=== PATIENT | female | born 1950 | race Caucasian/White ===

== ENCOUNTER → 2020-04-23 10:09 | Outpatient (BNVA) | payer MEDICARE, SELFPAY | PROVIDERS: PCP Family Medicine; Visit Provider Hospitalist | DX: J45.40 Moderate persistent asthma, uncomplicated (principal); R06.00 Dyspnea, unspecified | CPT/HCPCS: 99214 ==

== ENCOUNTER 2021-03-04 14:07 | Outpatient (REF) | payer MEDICARE, SELFPAY ==
[2021-03-04 16:04] LABS: Troponin-I High Sensitivity < 3.5 ng/L (<3.5-17.0)
[2021-03-06 03:36] LABS: SARS COV2 IgG Negative (Negative)
[2021-03-07 16:46] LABS: Immunoglobulin E 90 kU/L (<OR=114)
== END 2021-03-04 14:08 | disposition home or self-care (01) ==
LOC: HO.LAB 14:07
PROVIDERS: PCP Internal Medicine; Visit Provider Hospitalist
DX: J45.40 Moderate persistent asthma, uncomplicated (principal); R06.00 Dyspnea, unspecified; R06.89 Other abnormalities of breathing; R07.0 Pain in throat
CPT/HCPCS: 36415; 82785; 84484; 86769; 99212

== ENCOUNTER → 2021-08-30 08:24 | Outpatient (BNVA) | payer MEDICARE, SELFPAY | PROVIDERS: PCP Internal Medicine; Visit Provider Hospitalist | DX: J45.40 Moderate persistent asthma, uncomplicated (principal); J30.9 Allergic rhinitis, unspecified; R94.31 Abnormal electrocardiogram [ECG] [EKG]; R06.00 Dyspnea, unspecified; R06.89 Other abnormalities of breathing | CPT/HCPCS: 99212 ==

== ENCOUNTER → 2022-08-08 10:32 | Outpatient (BNVA) | payer MEDICARE, SELFPAY | PROVIDERS: PCP Internal Medicine; Visit Provider Hospitalist | DX: J45.40 Moderate persistent asthma, uncomplicated (principal); R94.31 Abnormal electrocardiogram [ECG] [EKG]; J30.9 Allergic rhinitis, unspecified; R06.00 Dyspnea, unspecified; R06.89 Other abnormalities of breathing; R00.0 Tachycardia, unspecified | CPT/HCPCS: 94618; 99212 ==

== ENCOUNTER 2022-08-17 10:47 | Outpatient (REF) | payer MEDICARE, SELFPAY ==
--- NOTE | 2022-08-17 13:58 | PFT_ITS ---
FLOWS: FEV1 83% of predicted at 1.53 L. FVC 81% of predicted at 2.00 L. FEV1 to FVC ratio of 0.77. Positive bronchodilator response. LUNG VOLUMES: Total lung capacity 90% of predicted at 4.02 L. Residual volume 95% of predicted at 1.93 L. Slow vital capacity 86% of predicted at 2.09 L. Expiratory reserve volume 24% of predicted at 0.12 L. Diffusion capacity is normal. IMPRESSION: No obstructive or restrictive ventilatory defect. Positive bronchodilator response. Decrease expiratory reserve volume suggests extrathoracic restriction likely secondary to abdominal obesity. Lee Guerrero MD AP/MODL / [id number]
== END 2022-08-17 10:48 | disposition home or self-care (01) ==
LOC: HO.RESP 10:47
PROVIDERS: PCP Internal Medicine; Visit Provider Hospitalist
DX: R06.00 Dyspnea, unspecified (principal)
CPT/HCPCS: 94060; 94727; 94729

== ENCOUNTER 2023-04-25 10:29 | Outpatient (AMB) | payer MEDICARE, SELFPAY ==
[2023-04-25 10:38] VITALS: BP 116/64; PULSE 59; O2SAT 100; BMI 28.5
--- NOTE | 2023-04-25 10:38 | MHC.OFFVIS ---
Intake Vital Signs 04/25/23 10:38 Height 5 ft Weight 146 lb BMI 28.5 BP 116/64 Blood Pressure Location Lt brachial Position Sitting Pulse 59 Pulse Source Pulse Oximeter Pulse Oximetry (%) 100 Oxygen Delivery Method Room Air Intake Visit Reasons: sick visit- cough/SOB Slitting And Shipping Supervisor Required: No Hard Metals Engraver Hand: Hard Metals Engraver Hand offered & declined Accompanied by: Self / Same As Patient Allergies No Known Allergies Allergy (Verified 04/25/23 10:43) Medication List - Last Reconciled 04/25/23 by Tahmina Johnson LPN albuterol sulfate 90 mcg/actuation (Ventolin HFA) 2 puffs inhalation QID PRN 30 days blood sugar diagnostic (Contour Next Test Strips) use 1 test strip six to eight times daily to test blood sugar; fluticasone propion-salmeterol 250-50 mcg/dose (Wixela Inhub) 1 inh inhalation Q12H hydrochlorothiazide 25 mg PO DAILY insulin aspart U-100 (Novolog U-100 Insulin aspart) 65 units (0.65 mL) subcut DIRECTED insulin glargine (Lantus U-100 Insulin) 10 units subcut DAILY ipratropium bromide 2 sprays intranasal TID PRN levothyroxine 60 mcg PO DAILY levothyroxine (Synthroid) 112 mcg PO DAILY mometasone 50 mcg/actuation (Nasonex) 2 sprays intranasal DAILY nifedipine ER 90 mg PO DAILY valsartan 160 mg PO DAILY zinc acetate (Galzin) 50 mg PO DAILY HPI sick visit- cough/SOB HPI Details Flor is a very pleasant 72 year old, never smoker, with followed for asthma, dyspnea and allergic rhinitis. She is well controlled on Wixela and uses albuterol along with flonase PRN with moderate effect. Today she presents for an acute visit. She reports bronchitic symptoms that have progressively worsened over the last two weeks with shortness of breath, wheeze, cough with yellow sputum and chest congestion. Denies any chest discomfort. She reports low grade fever for the first few days, otherwise denies chills or sick contacts. COVID test yesterday, negative. [facility] Medical History (Updated 04/25/23 @ 13:04 by Casandra Quiros NP) Tachycardia Dyspnea Chronic allergic rhinitis Throat discomfort Chest pain Asthma Dyspnea and respiratory abnormalities Family History (Updated 04/26/20 @ 22:15 by Lalito Alvarez MD) Other Asthma Social History (Updated 03/04/21 @ 14:23 by TERRELL Godinez) Patient Tobacco Use Status: Never used Tobacco Review of Systems Const Denies chills, Denies excessive sweating, Denies headache(s) and Denies night sweats Eyes Denies dry eyes, Denies irritation and Denies itchy eyes ENT Reports Normal hearing present, Denies headache(s), Denies nasal discharge and Denies post nasal drip Card Denies chest pain, Denies chest pain at rest, Denies chest pain with activity, Denies claudication, Denies leg edema, Denies orthopnea and Denies paroxysmal nocturnal dyspnea Resp Denies excessive phlegm production, Denies pain on inspiration, Denies pain with cough and Denies stridor Musc Denies myalgias Neuro Reports Normal hearing present and Denies headache(s) Endo Denies excessive sweating Robert/Lymph Denies lymphadenopathy Aller/Immun Denies itchy eyes and Denies seasonal rhinorrhea Physical Exam Vital Signs: Last Vital Signs Pulse 59 04/25/23 10:38 BP 116/64 04/25/23 10:38 Pulse Ox 100 04/25/23 10:38 Oxygen Delivery Method Room Air 04/25/23 10:38 BMI result Body Mass Index 28.5 Const General: cooperative, healthy appearing, comfortable, no acute distress, well developed and alert Orientation/consciousness: patient oriented x3 Limitations: no limitations HEENT Head: Yes normal to inspection, Yes normocephalic and Yes atraumatic Ears: hearing grossly normal bilaterally and external ears normal Eyes General: appearance normal, both eyes and all related structures Eyelids: Yes eyelids normal Sclerae: sclerae normal EOM: EOMs intact bilaterally Neck Neck: Yes normal visual inspection and Yes no lymphadenopathy Lymphatic: no lymphadenopathy noted Chest Chest palpation & inspection: normal inspection of the chest Resp Other: faint expiratory wheeze with post exhalation cough Effort & Inspection: normal respiratory effort, able to speak in complete sentences, no audible wheezes, Actively coughing, no stridor, not tachypneic, no tripod positioning and no use of accessory muscles Cardio Jugular venous distension: no JVD Rate: regular rate Rhythm: regular rhythm Skin Other: warm, dry General skin exam: no rashes or lesions noted Neuro General: patient oriented x3 Cranial nerves: Yes Normal hearing present Cognition (Neuro): normal cognition Gait exam (Neuro): Normal gait present Extrem General: Yes normal to inspection, Yes capillary refill normal, Yes no clubbing, cyanosis or edema and Yes no pedal edema Psych Appearance: grossly normal and well kempt Speech and movement: Normal speech and movement present and Clear speech present Affect: normal affect Attitude: cooperative Thought process: Normal thought process present Thought content: Normal thought content present Insight: Good insight present (Psych) Judgement: Good judgement present (Psych) Assessment & Plan Assessment & Plan (1) Bronchitis: Code(s): J40 - Bronchitis, not specified as acute or chronic (2) Asthma: Code(s): J45.909 - Unspecified asthma, uncomplicated Qualifiers: Asthma severity: moderate Asthma persistence: persistent Asthma complication type: uncomplicated Qualified Code(s): J45.40 - Moderate persistent asthma, uncomplicated (3) Chronic allergic rhinitis: Code(s): J30.9 - Allergic rhinitis, unspecified Plan Will treat bronchitic symptoms with azithromycin and prednisone. Patient aware if symptoms do not improve to call the office. Refills of Wixela and albuterol sent. All questions were answered and patient is in agreement of plan. Will follow up at regularly scheduled appointment with Dr. Alvarez in June or sooner if needed. Medications: New albuterol sulfate 90 mcg/actuation 2 puffs inhalation Q4-6H PRN 3 ea 1RF shortness of breath or wheezing azithromycin For 250 mg dose pack: take 500 mg today (day 1), then 250 mg for 4 days (days 2-5) PO 6 tabs 1RF prednisone 40 mg (2 x 20 mg) PO DAILY 10 tabs 1RF fluticasone propion-salmeterol 250-50 mcg/dose (Wixela Inhub) 1 inh inhalation Q12H 180 ea 1RF Refilled albuterol sulfate 90 mcg/actuation (Ventolin HFA) 2 puffs inhalation QID 30 days PRN 18 grams 11RF shortness of breath or wheezing ipratropium bromide administer into each nostril 2 sprays intranasal TID PRN 15 mL 6RF allergy symptoms Coding Level of Care Code Est Pt Level 3 (83127) Diagnoses Bronchitis J40 Moderate persistent asthma without complication J45.40 Asthma severity: moderate Asthma persistence: persistent Asthma complication type: uncomplicated Chronic allergic rhinitis J30.9
== END 2023-04-25 11:29 | disposition home or self-care (01) ==
LOC: HO.HPSW 10:29
PROVIDERS: PCP Internal Medicine; Visit Provider Nurse Practitioner Family
DX: J40 Bronchitis, not specified as acute or chronic (principal); J45.40 Moderate persistent asthma, uncomplicated; J30.9 Allergic rhinitis, unspecified
CPT/HCPCS: 99213

== ENCOUNTER → 2023-04-25 10:29 | Outpatient (BNVA) | payer MEDICARE, SELFPAY | PROVIDERS: PCP Internal Medicine; Visit Provider Nurse Practitioner Family | DX: J45.40 Moderate persistent asthma, uncomplicated (principal); J40 Bronchitis, not specified as acute or chronic; J30.9 Allergic rhinitis, unspecified | CPT/HCPCS: 99212 ==

== ENCOUNTER 2023-08-20 14:09 | Outpatient (REF) | payer MEDICARE, SELFPAY ==
--- NOTE | ~2023-08-20 | XR_ITS ---
EXAMINATION: XR CHEST CLINICAL INFORMATION: Dyspnea COMPARISON: 12/04/2019 TECHNIQUE: 2 views of the chest were obtained. FINDINGS: No significant abnormality is noted involving the heart, lungs, mediastinum, or soft tissues. Trace leftward scoliosis and mid thoracic compression deformities are unchanged. XR/XR chest 2V IMPRESSION: No acute cardiopulmonary disease or interval change.
== END 2023-08-20 14:10 | disposition home or self-care (01) ==
LOC: HO.XRAY 14:09
PROVIDERS: PCP Internal Medicine; Visit Provider Hospitalist
DX: J45.40 Moderate persistent asthma, uncomplicated (principal); J44.9 Chronic obstructive pulmonary disease, unspecified; J30.9 Allergic rhinitis, unspecified; R06.09 Other forms of dyspnea
CPT/HCPCS: 71046; 99212

== ENCOUNTER 2023-08-20 14:09 | Outpatient (AMB) | payer MEDICARE, SELFPAY ==
[2023-08-20 14:21] VITALS: PULSE 71; O2SAT 98; BMI 28.1
--- NOTE | 2023-08-20 14:21 | MHC.OFFVIS ---
Intake Vital Signs 08/20/23 14:21 Height 5 ft Weight 144 lb BMI 28.1 Pulse 71 Pulse Source Pulse Oximeter Pulse Oximetry (%) 98 Oxygen Delivery Method Room Air Intake Visit Reasons: copd Office Coordinator Receptionist Required: No Allergies No Known Allergies Allergy (Verified 08/20/23 14:22) HPI HPI Comments History of Present Illness Details the patient is a 72 year-old woman with a known history of asthma presenting with persistent dyspnea on exertion. 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 She had noticed increased dyspnea on exertion limiting her ability of exerting herself. She did demonstrated evidence of obstructive airway disease on her pulmonary function studies. Therefore she was treated for asthma with multiple inhalers of different classifications without any significant improvement. Therefore, we start her on nebulized therapy also without any significant improvement in her symptoms. We did review her x-ray demonstrating flattening of the diaphragms and hyperinflation. We also repeat her blood work. However, she did not respond to the inhaled therapy. This brings up the question evaluating for now Rima of diagnosis to explain her dyspnea. I explained to her that a CT scan of the chest would be helpful to better address her persistent symptoms. in addition to that she is concerned about systemic cortical steroids in view of her diabetes. This point the patient will return to using her Symbicort at least once a day. And she also has a short-acting beta agonist that she can use as needed. We did talk about the importance of warming up specially when she is going to start exercising to minimize exercise-induced bronchospasms. We also talked about pursed lip breathing to improve her respiratory capacity by increasing her intrinsic peep. 03/04/2021 the patient is here for a pulmonary follow-up visit. Since we last spoke she told me that she was having significant respiratory symptoms with chest congestion and cough for several weeks. She had been using her Ventolin HFA inhaler which appears to be the most effective 1 for her in the only 1 that gives her some relief. She did have evaluations by primary care doctor although she did not want to go to urgent care or the ER because she did not want to be expose to anybody who was sick. The patient did have an episode where her breathing became so significant she thought she was going to . she did improve and her respiratory symptoms have now back to baseline and she is back to using the Ventolin HFA. She is not using any of the other inhalers that will try in addition to that she has been having significant daytime drowsiness and also having a sense of throat swelling. She thought it could be 1 of her blood pressure medications so therefore she stopped all of them this includes the combination of valsartan and hydrochlorothiazide as well as amlodipine. When she stops the medication the sense of the PT drowsiness in the throat swelling sensation improved. However her blood pressure was elevated and she did go back to the valsartan hydrochlorothiazide combination. She has since that she has been doing back on an that the throat swelling sensation has returned. Therefore, she is going to talk to her primary care doctor about potentially switching her medications possibly the combination therapy to figure out which medication is potentially bother her since her symptoms improved once she stops the medication. She is not sure if she had COVID during the time that she was ill although she was tested for COVID a couple times and she was negative. Today before she leaves the hospital will have her get blood work including a COVID-19 antibody checked to see if there was any evidence of any exposure to COVID and her serology. 08/30/2021 the patient is here for a pulmonary follow-up visit. Overall she is doing better from a respiratory status. She has been exercising regularly in her cough is improved. Her chest congestion also has improved. She does use her Wixela daily and also uses her short-acting beta agonist prior to exercise. In the meantime she did follow-up with cardiology. She has had issues with elevated blood pressures and also carries other cardiovascular risk factors in addition to a positive family history of early heart disease. The patient did have an EKG and she did bring it in demonstrating some septal wall abnormalities. 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 Therefore, she will talk to her public relations regarding a stress test. In the meantime she complains about the nasal congestion. Sooner for works wonders for her. However now with her blood pressure she needs to be very careful with Sudafed as again increased blood pressure and increase her heart rate. Therefore we talked about alternatives including Atrovent nasal spray. She can use any conjunction with her nasocort. 08/08/2022 the patient is here for a pulmonary follow-up visit. She continues to have significant dyspnea on exertion. Even with minimal activity. Recently she went skiing with her grandchildren had a very hard time with shortness of breath to feels that the shortness of breath is getting worse. She did follow-up with cardiology in has been dealing with elevations in her blood pressure. As far as the pulmonary evaluation she has been on multiple inhalers without any significant improvement of her symptoms. She has not had pulmonary function studies in some time however. She also has not had any imaging studies either. During that visit we did go for 6 minutes walk test willing upstairs. Once we get to 3 flights of stairs heart rate went up to 135 and the patient was visibly dyspneic with dyspnea score 10/10. She rested. She denied any chest pain or pressure during that ambulation. once the patient's heart rate went over 101 she became symptomatic with some mild dyspnea. Again, once the heart rate decreased to below 100 her symptoms of dyspnea improved. She is closely working with Cardiology. the patient is wondering about a diagnosis of pulmonary hypertension. I do believe that a cardiopulmonary exercise study may be helpful at this point to assess for etiologies of her underlying dyspnea. In anyway she was having significant dyspnea and elevations in the heart rate. Therefore, blood work will be also important to make sure she is not anemic and also checking a D-dimer to rule out the possibility of chronic thromboembolic disease. If her D-dimer is elevated then a CTA or a V/Q scan or both will be helpful in further addressing her symptoms. 08/20/2023 the patient is here for a pulmonary follow-up visit. She continues to struggle with the same symptoms. Appears to have worsening dyspnea on exertion. She states that even going from the mailbox her house she has a stop once. The patient was a very avid hiker. She even climb [employer]. The patient is struggling at this point because of significant dyspnea. We had evaluated her in the past and she did develop significant tachycardia with any activity. She has been following closely with Cardiology though still not clear. She will benefit from additional testing and therefore I will request a cardiopulmonary exercise tolerance test at [facility] to further address the physiology behind her significant dyspnea symptoms. She has been on respiratory therapy. She definitely has asthma with small airways disease that is being treated with medication. Still no significant improvement of the dyspnea symptoms. The patient has not had a chest x-ray in a couple years therefore will go ahead and repeat 1 at this time. will plan to follow-up in 4-6 months but will discuss her findings and the CPAP once available. If the patient has any worsening issues or any other concerning issues she will call for an earlier assessment. [facility] Medical History (Updated 08/20/23 @ 18:44 by Lalito Alvarez MD) Tachycardia Dyspnea Chronic allergic rhinitis Throat discomfort Chest pain Asthma Dyspnea and respiratory abnormalities Family History (Updated 04/26/20 @ 22:15 by Lalito Alvarez MD) Other Asthma Social History (Updated 03/04/21 @ 14:23 by Daylin Bradford REPLACED BY [facility]) Patient Tobacco Use Status: Never used Tobacco Review of Systems Const Denies fatigue and Denies night sweats Eyes Denies change in vision ENT Denies change in voice, Denies lip swelling, Denies mouth pain, Reports nasal congestion, Reports nasal discharge, Reports post nasal drip and Denies tongue swelling Card Denies chest pain and Reports dyspnea on exertion Resp Reports cough and Reports dyspnea on exertion GI Denies abdominal pain Musc Denies no additional complaints Neuro Denies Neuro-related abnormal movements Psych Denies no additional complaints Endo Denies fatigue Robert/Lymph Denies easy bleeding and Denies lymphadenopathy Aller/Immun Denies lip swelling and Denies tongue swelling Physical Exam Vital Signs: Last Vital Signs Pulse 71 08/20/23 14:21 Pulse Ox 98 08/20/23 14:21 Oxygen Delivery Method Room Air 08/20/23 14:21 BMI result Body Mass Index 28.1 Const General: alert HEENT General nose exam: Nasal discharge present Mouth: Normal oral and palatal mucosa present, oropharynx normal and moist mucous membranes Throat: Yes postnasal drainage and No uvular edema Eyes Pupils: Equal, round and reactive pupils present Neck Neck: Yes normal visual inspection, Yes full ROM and Yes no lymphadenopathy Chest Chest palpation & inspection: normal inspection of the chest Resp Auscultation: clear to auscultation bilaterally, no rales, no rhonchi and no wheezes Cardio Rate: regular rate Rhythm: regular rhythm Heart sounds: S1 normal heart sound present and S2 normal heart sound present GI Palpation (GI): Soft to palpation and nontender Auscultation: normal bowel sounds General: Yes no CVA tenderness Back/Spine/Pelvis Back: no CVA tenderness Skin General skin exam: rashes and/or lesions noted Neuro Cranial nerves: Yes Equal, round and reactive pupils present Assessment & Plan Assessment & Plan (1) Dyspnea: Code(s): R06.00 - Dyspnea, unspecified Qualifiers: Dyspnea type: dyspnea on exertion Qualified Code(s): R06.09 - Other forms of dyspnea (2) Asthma: Code(s): J45.909 - Unspecified asthma, uncomplicated Qualifiers: Asthma severity: moderate Asthma persistence: persistent Asthma complication type: uncomplicated Qualified Code(s): J45.40 - Moderate persistent asthma, uncomplicated (3) Chronic allergic rhinitis: Code(s): J30.9 - Allergic rhinitis, unspecified (4) Tachycardia: Code(s): R00.0 - Tachycardia, unspecified Plan CPET continue symbicort RHONDA as needed CXR F/U 4-6 months Orders: Orders XR chest 2V Today R06.00 - Dyspnea, unspecified CA cardiopulmonary stress test Today R06.00 - Dyspnea, unspecified Coding Level of Care Code Est Pt Level 4 (79451) Diagnoses Dyspnea on exertion R06.09 Dyspnea type: dyspnea on exertion Moderate persistent asthma without complication J45.40 Asthma severity: moderate Asthma persistence: persistent Asthma complication type: uncomplicated Chronic allergic rhinitis J30.9 Tachycardia R00.0 Time Spent (min) 18
== END 2023-08-20 14:45 | disposition home or self-care (01) ==
PROVIDERS: PCP Internal Medicine; Visit Provider Hospitalist
DX: R06.09 Other forms of dyspnea (principal); J45.40 Moderate persistent asthma, uncomplicated; J30.9 Allergic rhinitis, unspecified; R00.0 Tachycardia, unspecified
CPT/HCPCS: 99214

== ENCOUNTER 2023-11-06 10:15 | Outpatient (AMB) | payer MEDICARE, SELFPAY ==
[2023-11-06 10:18] VITALS: BP 124/70; PULSE 65; O2SAT 98; BMI 27.3
--- NOTE | 2023-11-06 10:18 | MHC.OFFVIS ---
Vital Signs 11/06/23 10:18 Height 5 ft Weight 140 lb BMI 27.3 BP 124/70 Blood Pressure Location Lt brachial Position Sitting Pulse 65 Pulse Source Pulse Oximeter Pulse Oximetry (%) 98 Oxygen Delivery Method Room Air Intake Visit Reasons: copd Technologist Development Required: No Allergies No Known Allergies Allergy (Verified 11/06/23 10:20) HPI Comments Details: the patient is a 73 year-old woman with a known history of asthma presenting with persistent dyspnea on exertion. 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 She had noticed increased dyspnea on exertion limiting her ability of exerting herself. She did demonstrated evidence of obstructive airway disease on her pulmonary function studies. Therefore she was treated for asthma with multiple inhalers of different classifications without any significant improvement. Therefore, we start her on nebulized therapy also without any significant improvement in her symptoms. We did review her x-ray demonstrating flattening of the diaphragms and hyperinflation. We also repeat her blood work. However, she did not respond to the inhaled therapy. This brings up the question evaluating for now Rima of diagnosis to explain her dyspnea. I explained to her that a CT scan of the chest would be helpful to better address her persistent symptoms. in addition to that she is concerned about systemic cortical steroids in view of her diabetes. This point the patient will return to using her Symbicort at least once a day. And she also has a short-acting beta agonist that she can use as needed. We did talk about the importance of warming up specially when she is going to start exercising to minimize exercise-induced bronchospasms. We also talked about pursed lip breathing to improve her respiratory capacity by increasing her intrinsic peep. 03/04/2021 the patient is here for a pulmonary follow-up visit. Since we last spoke she told me that she was having significant respiratory symptoms with chest congestion and cough for several weeks. She had been using her Ventolin HFA inhaler which appears to be the most effective 1 for her in the only 1 that gives her some relief. She did have evaluations by primary care doctor although she did not want to go to urgent care or the ER because she did not want to be expose to anybody who was sick. The patient did have an episode where her breathing became so significant she thought she was going to . she did improve and her respiratory symptoms have now back to baseline and she is back to using the Ventolin HFA. She is not using any of the other inhalers that will try in addition to that she has been having significant daytime drowsiness and also having a sense of throat swelling. She thought it could be 1 of her blood pressure medications so therefore she stopped all of them this includes the combination of valsartan and hydrochlorothiazide as well as amlodipine. When she stops the medication the sense of the PT drowsiness in the throat swelling sensation improved. However her blood pressure was elevated and she did go back to the valsartan hydrochlorothiazide combination. She has since that she has been doing back on an that the throat swelling sensation has returned. Therefore, she is going to talk to her primary care doctor about potentially switching her medications possibly the combination therapy to figure out which medication is potentially bother her since her symptoms improved once she stops the medication. She is not sure if she had COVID during the time that she was ill although she was tested for COVID a couple times and she was negative. Today before she leaves the hospital will have her get blood work including a COVID-19 antibody checked to see if there was any evidence of any exposure to COVID and her serology. 08/30/2021 the patient is here for a pulmonary follow-up visit. Overall she is doing better from a respiratory status. She has been exercising regularly in her cough is improved. Her chest congestion also has improved. She does use her Wixela daily and also uses her short-acting beta agonist prior to exercise. In the meantime she did follow-up with cardiology. She has had issues with elevated blood pressures and also carries other cardiovascular risk factors in addition to a positive family history of early heart disease. The patient did have an EKG and she did bring it in demonstrating some septal wall abnormalities. 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 Therefore, she will talk to her voltage tester regarding a stress test. In the meantime she complains about the nasal congestion. Sooner for works wonders for her. However now with her blood pressure she needs to be very careful with Sudafed as again increased blood pressure and increase her heart rate. Therefore we talked about alternatives including Atrovent nasal spray. She can use any conjunction with her nasocort. 08/08/2022 the patient is here for a pulmonary follow-up visit. She continues to have significant dyspnea on exertion. Even with minimal activity. Recently she went skiing with her grandchildren had a very hard time with shortness of breath to feels that the shortness of breath is getting worse. She did follow-up with cardiology in has been dealing with elevations in her blood pressure. As far as the pulmonary evaluation she has been on multiple inhalers without any significant improvement of her symptoms. She has not had pulmonary function studies in some time however. She also has not had any imaging studies either. During that visit we did go for 6 minutes walk test willing upstairs. Once we get to 3 flights of stairs heart rate went up to 135 and the patient was visibly dyspneic with dyspnea score 10/10. She rested. She denied any chest pain or pressure during that ambulation. once the patient's heart rate went over 101 she became symptomatic with some mild dyspnea. Again, once the heart rate decreased to below 100 her symptoms of dyspnea improved. She is closely working with Cardiology. the patient is wondering about a diagnosis of pulmonary hypertension. I do believe that a cardiopulmonary exercise study may be helpful at this point to assess for etiologies of her underlying dyspnea. In anyway she was having significant dyspnea and elevations in the heart rate. Therefore, blood work will be also important to make sure she is not anemic and also checking a D-dimer to rule out the possibility of chronic thromboembolic disease. If her D-dimer is elevated then a CTA or a V/Q scan or both will be helpful in further addressing her symptoms. 08/20/2023 the patient is here for a pulmonary follow-up visit. She continues to struggle with the same symptoms. Appears to have worsening dyspnea on exertion. She states that even going from the mailbox her house she has a stop once. The patient was a very avid hiker. She even climb [employer]. The patient is struggling at this point because of significant dyspnea. We had evaluated her in the past and she did develop significant tachycardia with any activity. She has been following closely with Cardiology though still not clear. She will benefit from additional testing and therefore I will request a cardiopulmonary exercise tolerance test at [facility] to further address the physiology behind her significant dyspnea symptoms. She has been on respiratory therapy. She definitely has asthma with small airways disease that is being treated with medication. Still no significant improvement of the dyspnea symptoms. The patient has not had a chest x-ray in a couple years therefore will go ahead and repeat 1 at this time. will plan to follow-up in 4-6 months but will discuss her findings and the CPAP once available. If the patient has any worsening issues or any other concerning issues she will call for an earlier assessment. 11/06/2023 the patient is here for pulmonary follow-up visit. She continues to complain of dyspnea on exertion. Seems to be getting worse. We did review her pulmonary function studies. Appears to have a component of small airways disease consistent with asthma current the patient has been on Wixela but no significant improvement. Will provide her with Symbicort with hopes that she can use it specially in the morning which she is mostly active. She did undergo a cardiopulmonary exercise tolerance test. During the study she did have a respiratory limitation. She was obstructive indeed. Therefore the inhaler should help some. In addition to that as she exercise she developed worsening V/Q mismatch increasing space suggesting pulmonary vascular disease. Patient likely has exercise-induced pulmonary hypertension. We did talk about any level 3 CPAP although that is very invasive. Will try to request a exercise echo and see if we can measure pulmonary pressures with exercise. We consider vasodilators therapy if indicated. [facility] Medical History (Updated 11/06/23 @ 10:40 by Lalito Alvarez MD) Pulmonary hypertension Tachycardia Dyspnea Chronic allergic rhinitis Throat discomfort Chest pain Asthma Dyspnea and respiratory abnormalities Family History (Updated 04/26/20 @ 22:15 by Lalito Alvarez MD) Other Asthma Social History (Updated 03/04/21 @ 14:23 by Daylin Bradford [facility]) Patient Tobacco Use Status: Never used Tobacco Review of Systems Const Denies fatigue and Denies night sweats Eyes Denies change in vision ENT Denies change in voice, Denies lip swelling, Denies mouth pain, Reports nasal congestion, Reports nasal discharge, Reports post nasal drip and Denies tongue swelling Card Denies chest pain and Reports dyspnea on exertion Resp Reports cough and Reports dyspnea on exertion GI Denies abdominal pain Musc Denies no additional complaints Neuro Denies Neuro-related abnormal movements Psych Denies no additional complaints Endo Denies fatigue Robert/Lymph Denies easy bleeding and Denies lymphadenopathy Aller/Immun Denies lip swelling and Denies tongue swelling Physical Exam Vital Signs: Last Vital Signs Pulse 65 11/06/23 10:18 BP 124/70 11/06/23 10:18 Pulse Ox 98 11/06/23 10:18 Oxygen Delivery Method Room Air 11/06/23 10:18 BMI result Body Mass Index 27.3 Const General: alert HEENT General nose exam: Nasal discharge present Mouth: Normal oral and palatal mucosa present, oropharynx normal and moist mucous membranes Throat: Yes postnasal drainage and No uvular edema Eyes Pupils: Equal, round and reactive pupils present Neck Neck: Yes normal visual inspection, Yes full ROM and Yes no lymphadenopathy Chest Chest palpation & inspection: normal inspection of the chest Resp Auscultation: clear to auscultation bilaterally, no rales, no rhonchi and no wheezes Cardio Rate: regular rate Rhythm: regular rhythm Heart sounds: S1 normal heart sound present and S2 normal heart sound present GI Palpation (GI): Soft to palpation and nontender Auscultation: normal bowel sounds General: Yes no CVA tenderness Back/Spine/Pelvis Back: no CVA tenderness Skin General skin exam: rashes and/or lesions noted Neuro Cranial nerves: Yes Equal, round and reactive pupils present Assessment & Plan Assessment & Plan (1) Dyspnea: Code(s): R06.00 - Dyspnea, unspecified Category: Medical Qualifiers: Dyspnea type: dyspnea on exertion Qualified Code(s): R06.09 - Other forms of dyspnea (2) Asthma: Code(s): J45.909 - Unspecified asthma, uncomplicated Category: Medical Qualifiers: Asthma complication type: uncomplicated Asthma persistence: persistent Asthma severity: moderate Qualified Code(s): J45.40 - Moderate persistent asthma, uncomplicated (3) Chronic allergic rhinitis: Code(s): J30.9 - Allergic rhinitis, unspecified Category: Medical (4) Tachycardia: Code(s): R00.0 - Tachycardia, unspecified Category: Medical (5) Pulmonary hypertension: Code(s): I27.20 - Pulmonary hypertension, unspecified Category: Medical Plan stress ECHO consider vasodilator therapy start symbicort F/U 3-4 months Orders: Orders CA echo stress exercise Today I27.20 - Pulmonary hypertension, unspecified Medications: New budesonide-formoterol 160-4.5 mcg/actuation (Symbicort) 2 puffs inhalation BID 10.2 grams 11RF 30 days J44.89 - Other specified chronic obstructive pulmonary disease Coding Level of Care Code Est Pt Level 4 (76663) Diagnoses Dyspnea on exertion R06.09 Dyspnea type: dyspnea on exertion Moderate persistent asthma without complication J45.40 Asthma complication type: uncomplicated Asthma persistence: persistent Asthma severity: moderate Chronic allergic rhinitis J30.9 Tachycardia R00.0 Pulmonary hypertension I27.20 Time Spent (min) 17
== END 2023-11-06 10:53 | disposition home or self-care (01) ==
PROVIDERS: PCP Internal Medicine; Visit Provider Hospitalist
DX: R06.09 Other forms of dyspnea (principal); J45.40 Moderate persistent asthma, uncomplicated; J30.9 Allergic rhinitis, unspecified; R00.0 Tachycardia, unspecified; I27.20 Pulmonary hypertension, unspecified
CPT/HCPCS: 99214

== ENCOUNTER → 2023-11-06 10:15 | Outpatient (BNVA) | payer MEDICARE, SELFPAY | PROVIDERS: PCP Internal Medicine; Visit Provider Hospitalist | DX: J45.40 Moderate persistent asthma, uncomplicated (principal); J30.9 Allergic rhinitis, unspecified; R06.09 Other forms of dyspnea; R00.0 Tachycardia, unspecified; I27.20 Pulmonary hypertension, unspecified | CPT/HCPCS: 99212 ==

== ENCOUNTER → 2023-12-06 10:34 | Outpatient (REF) | payer MEDICARE, SELFPAY ==
--- NOTE | 2023-12-06 10:36 | CA_ITS ---
Acquisition Time: 2023-12-06 10:40:38 Total Exercise Time: 00:09:30 Test Indications: PULM HTN Medications: SEE H Protocol: MERARY Max HR: 150 BPM 102% of Pred: 147 BPM Max BP: 178/070 mmHG Max Work Load: 10.8 METS Exercise stress test exercise 9 min 30 sec of Merary protocol achieving 102% MPHR, without anginal symptoms, with isolated PVCs and PACs, with normotensive response to exercise, without EKG changes. Echo images obtained by tech at rest and immediately post peak exercise. Definity contrast used. Test reviewed with Dr. Rosa. Referred By: Lalito Alvarez Overread By: Tete Silver
== END ==
LOC: HO.CARD 10:34
PROVIDERS: PCP Internal Medicine; Visit Provider Hospitalist
DX: I27.20 Pulmonary hypertension, unspecified (principal)
CPT/HCPCS: 93350; Q9957

== ENCOUNTER 2024-02-19 09:51 | Outpatient (AMB) | payer MEDICARE, SELFPAY ==
[2024-02-19 10:12] VITALS: BP 136/70; PULSE 66; O2SAT 99; BMI 27.3
--- NOTE | 2024-02-19 10:12 | A.OFFVIS_ITS ---
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 She had noticed increased dyspnea on exertion limiting her ability of exerting herself. She did demonstrated evidence of obstructive airway disease on her pulmonary function studies. Therefore she was treated for asthma with multiple inhalers of different classifications without any significant improvement. Therefore, we start her on nebulized therapy also without any significant improvement in her symptoms. We did review her x-ray demonstrating flattening of the diaphragms and hyperinflation. We also repeat her blood work. However, she did not respond to the inhaled therapy. This brings up the question evaluating for now Rima of diagnosis to explain her dyspnea. I explained to her that a CT scan of the chest would be helpful to better address her persistent symptoms. in addition to that she is concerned about systemic cortical steroids in view of her diabetes. This point the patient will return to using her Symbicort at least once a day. And she also has a short-acting beta agonist that she can use as needed. We did talk about the importance of warming up specially when she is going to start exercising to minimize exercise- induced bronchospasms. We also talked about pursed lip breathing to improve her respiratory capacity by increasing her intrinsic peep. 03/04/2021 the patient is here for a pulmonary follow-up visit. Since we last spoke she told me that she was having significant respiratory symptoms with chest congestion and cough for several weeks. She had been using her Ventolin HFA inhaler which appears to be the most effective 1 for her in the only 1 that gives her some relief. She did have evaluations by primary care doctor although she did not want to go to urgent care or the ER because she did not want to be expose to anybody who was sick. The patient did have an episode where her breathing became so significant she thought she was going to . she did improve and her respiratory symptoms have now back to baseline and she is back to using the Ventolin HFA. She is not using any of the other inhalers that will try in addition to that she has been having significant daytime drowsiness and also having a sense of throat swelling. She thought it could be 1 of her blood pressure medications so therefore she stopped all of them this includes the combination of valsartan and hydrochlorothiazide as well as amlodipine. When she stops the medication the sense of the PT drowsiness in the throat swelling sensation improved. However her blood pressure was elevated and she did go back to the valsartan hydrochlorothiazide combination. She has since that she has been doing back on an that the throat swelling sensation has returned. Therefore, she is going to talk to her primary care doctor about potentially switching her medications possibly the combination therapy to figure out which medication is potentially bother her since her symptoms improved once she stops the medication. She is not sure if she had COVID during the time that she was ill although she was tested for COVID a couple times and she was negative. Today before she leaves the hospital will have her get blood work i ncluding a COVID-19 antibody checked to see if there was any evidence of any exposure to COVID and her serology. 08/30/2021 the patient is here for a pulmonary follow-up visit. Overall she is doing better from a respiratory status. She has been exercising regularly in her cough is improved. Her chest congestion also has improved. She does use her Wixela daily and also uses her short-acting beta agonist prior to exercise. In the meantime she did follow-up with cardiology. She has had issues with elevated blood pressures and also carries other cardiovascular risk factors in addition to a positive family history of early heart disease. The patient did have an EKG and she did bring it in demonstrating some septal wall abnormalities. 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 Therefore, she will talk to her supervisor sawmill regarding a stress test. In the meantime she complains about the nasal congestion. Sooner for works wonders for her. However now with her blood pressure she needs to be very careful with Sudafed as again increased blood pressure and increase her heart rate. Therefore we talked about alternatives including Atrovent nasal spray. She can use any conjunction with her nasocort. 08/08/2022 the patient is here for a pulmonary follow-up visit. She continues to have significant dyspnea on exertion. Even with minimal activity. Recently she went skiing with her grandchildren had a very hard time with shortness of breath to feels that the shortness of breath is getting worse. She did follow- up with cardiology in has been dealing with elevations in her blood pressure. As far as the pulmonary evaluation she has been on multiple inhalers without any significant improvement of her symptoms. She has not had pulmonary function studies in some time however. She also has not had any imaging studies either. During that visit we did go for 6 minutes walk test willing upstairs. Once we get to 3 flights of stairs heart rate went up to 135 and the patient was visibly dyspneic with dyspnea score 10/10. She rested. She denied any chest pain or pressure during that ambulation. once the patient's heart rate went over 101 she became symptomatic with some mild dyspnea. Again, once the heart rate decreased to below 100 her symptoms of dyspnea improved. She is closely working with Cardiology. the patient is wondering about a diagnosis of pulmonary hypertension. I do believe that a cardiopulmonary exercise study may be helpful at this point to assess for etiologies of her underlying dyspnea. In anyway she was having significant dyspnea and elevations in the heart rate. Therefore, blood work will be also important to make sure she is not anemic and also checking a D-dimer to rule out the possibility of chronic thromboembolic disease. If her D-dimer is elevated then a CTA or a V/Q scan or both will be helpful in further addressing her symptoms. 08/20/2023 the patient is here for a pulmonary follow-up visit. She continues to struggle with the same symptoms. Appears to have worsening dyspnea on exertion. She states that even going from the mailbox her house she has a stop once. The patient was a very avid hiker. She even climb [employer]. The patient is struggling at this point because of significant dyspnea. We had evaluated her in the past and she did develop significant tachycardia with any activity. She has been following closely with Cardiology though still not clear. She will benefit from additional testing and therefore I will request a cardiopulmonary exercise tolerance test at [facility] to further address the physiology behind her significant dyspnea symptoms. She has been on respiratory therapy. She definitely has asthma with small airways disease that is being treated with medication. Still no significant improvement of the dyspnea symptoms. The patient has not had a chest x-ray in a couple years therefore will go ahead and repeat 1 at this time. will plan to follow-up in 4- 6 months but will discuss her findings and the CPAP once available. If the patient has any worsening issues or any other concerning issues she will call for an earlier assessment. 11/06/2023 the patient is here for pulmonary follow-up visit. She continues to complain of dyspnea on exertion. Seems to be getting worse. We did review her pulmonary function studies. Appears to have a component of small airways disease consistent with asthma current the patient has been on Wixela but no significant improvement. Will provide her with Symbicort with hopes that she can use it specially in the morning which she is mostly active. She did undergo a cardiopulmonary exercise tolerance test. During the study she did have a respiratory limitation. She was obstructive indeed. Therefore the inhaler should help some. In addition to that as she exercise she developed worsening V/Q mismatch increasing space suggesting pulmonary vascular disease. Patient likely has exercise-induced pulmonary hypertension. We did talk about any level 3 CPAP although that is very invasive. Will try to request a exercise echo and see if we can measure pulmonary pressures with exercise. We consider vasodilators therapy if indicated. 02/19/2024 the patient is here for a pulmonary follow-up visit. She continues to be about the same still complaining of dyspnea on exertion. Although she did go away to [place] and she did a lot better with the air quality there. When she came back to the [place] she had a hard time. The patient did undergo a stress echo which I did review with her. It appeared that she did not have any ischemic changes which is reassuring. 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 The patient is already on blood pressure medications for elevated blood pressure which is helpful for the diastolic dysfunction. She will need a rate controlling agent to allow her heart rate slowed down enough for her to be able to relax her left ventricle. She has tried beta-blockers in the past him with her asthma good idea. I will give her a prescription for small dose of diltiazem that she can take 4 times a day. The patient will watch closely for any adverse effects. She can also check her blood pressure and heart rate while taking the medication. If she has any issues she will call the office. She will be following up with Nephrology soon which will be helpful to adjust her blood pressure medications. She does continue the Symbicort. I did suggest that she continues use it 1 puff twice a day. Then when she is stable on the diltiazem she can try to decrease it to as needed. [facility] Medical History (Updated 02/19/24 @ 20:33 by Lalito Alvarez MD) 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 Pulmonary hypertension Tachycardia Dyspnea Chronic allergic rhinitis Throat discomfort Chest pain Asthma Dyspnea and respiratory abnormalities Family History (Updated 04/26/20 @ 22:15 by Lalito Alvarez MD) Other Asthma Social History (Updated 03/04/21 @ 14:23 by TERRELL Godinez) Patient Tobacco Use Status: Never used Tobacco Review of Systems Const Denies fatigue and Denies night sweats Eyes Denies change in vision ENT Denies change in voice, Denies lip swelling, Denies mouth pain, Reports nasal congestion, Reports nasal discharge, Reports post nasal drip and Denies tongue swelling Card Denies chest pain and Reports dyspnea on exertion Resp Reports cough and Reports dyspnea on exertion GI Denies abdominal pain Musc Denies no additional complaints Neuro Denies Neuro-related abnormal movements Psych Denies no additional complaints Endo Denies fatigue Robert/Lymph Denies easy bleeding and Denies lymphadenopathy Aller/Immun Denies lip swelling and Denies tongue swelling Physical Exam Vital Signs: Last Vital Signs Pulse 66 02/19/24 10:12 BP 136/70 02/19/24 10:12 Pulse Ox 99 02/19/24 10:12 Oxygen Delivery Method Room Air 02/19/24 10:12 BMI result Body Mass Index 27.3 Const General: alert HEENT General nose exam: Nasal discharge present Mouth: Normal oral and palatal mucosa present, oropharynx normal and moist mucous membranes Throat: Yes postnasal drainage and No uvular edema Eyes Pupils: Equal, round and reactive pupils present Neck Neck: Yes normal visual inspection, Yes full ROM and Yes no lymphadenopathy Chest Chest palpation & inspection: normal inspection of the chest Resp Auscultation: clear to auscultation bilaterally, no rales, no rhonchi and no wheezes Cardio Rate: regular rate Rhythm: regular rhythm Heart sounds: S1 normal heart sound present and S2 normal heart sound present GI Palpation (GI): Soft to palpation and nontender Auscultation: normal bowel sounds General: Yes no CVA tenderness Back/Spine/Pelvis Back: no CVA tenderness Skin General skin exam: rashes and/or lesions noted Neuro Cranial nerves: Yes Equal, round and reactive pupils present Results Reviewed Results Reviewed: [address] [address] Cardiology Report Signed with Addenda Patient: Flor Retana MR#: [id number] : 1950 Acct:[id number] Age/Sex: 73 / F ADM Date: 12/06/23 Loc: HO.CARD Attending Dr: Lalito Alvarez MD Ordering Physician: Lalito Alvarez MD Date of Service: 12/06/23 Procedure(s): CA echo stress exercise w con Accession Number(s): [id number] cc: Lalito Alvarez MD~ ADDENDUMAcquisition Time: 2023-12-06 10:40:38 Total Exercise Time: 00:09:30 Test Indications: PULM HTN Medications: SEE H Protocol: ARNOLDO Max HR: 150 BPM 102% of Pred: 147 BPM Max BP: 178/070 mmHG Max Work Load: 10.8 METS Exercise stress test exercise 9 min 30 sec of Arnoldo protocol achieving 102% MPHR, without anginal symptoms, with isolated PVCs and PACs, with normotensive response to exercise, without EKG changes. Echo images obtained by tech at rest and immediately post peak exercise. Definity contrast used. Test reviewed with Dr. Rosa. Echo images reviewed at rest and post stress. At rest: normal LVEF and no RWMA. Post stress: Augmented LVEF and no RWMA. Diastology: Elevated filling pressures at rest with pseudonormal pattern. TR veolcities increased post stress. Impression: No stress induced RWMA. Diastolic dysfunction present. Referred By: Lalito Alvarez Overread By: Nacho Rosa Addendum Dictated By: Nacho Rosa MD Addendum Signed By: <Electronically signed by Nacho Rosa MD> 12/10/23 1647 Addendum Cosigned By: DD/ TD/TT: 12/10/23 Acquisition Time: 2023-12-06 10:40:38 Total Exercise Time: 00:09:30 Test Indications: PULM HTN Medications: SEE H Protocol: ARNOLDO Max HR: 150 BPM 102% of Pred: 147 BPM Max BP: 178/070 mmHG Max Work Load: 10.8 METS Exercise stress test exercise 9 min 30 sec of Arnoldo protocol achieving 102% MPHR, without anginal symptoms, with isolated PVCs and PACs, with normotensive response to exercise, without EKG changes. Echo images obtained by tech at rest and immediately post peak exercise. Definity contrast used. Test reviewed with Dr. Rosa. Referred By: Lalito Alvarez Overread By: Tete Silver Dictated By: Tete Silver NP Signed By: <Electronically signed by Tete Silver in OV> 12/06/23 1549 DD/ 1040 TD/TT: 12/06/23 1549 Air Quality Consultant: Assessment & Plan Assessment & Plan (1) Dyspnea: Code(s): R06.00 - Dyspnea, unspecified Category: Medical Qualifiers: Dyspnea type: dyspnea on exertion Qualified Code(s): R06.09 - Other forms of dyspnea (2) Asthma: Code(s): J45.909 - Unspecified asthma, uncomplicated Category: Medical Qualifiers: Asthma complication type: uncomplicated Asthma persistence: persistent Asthma severity: moderate Qualified Code(s): J45.40 - Moderate persistent asthma, uncomplicated (3) Chronic allergic rhinitis: Code(s): J30.9 - Allergic rhinitis, unspecified Category: Medical (4) Tachycardia: Code(s): R00.0 - Tachycardia, unspecified Category: Medical (5) Pulmonary hypertension: Comment: secondary to the elevated LVEDP. 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: Comment: stress induced Code(s): I51.89 - Other ill-defined heart diseases Category: Medical Plan start low dose diltiazem for diastolic dysfuction in order to improve LV filling. Will monitor HR and BP F/U with cardiology continue symbicort for now F/U 3-4 months Coding Level of Care Code Est Pt Level 4 (34564) Complex EM visit Add On G2211 Diagnoses Dyspnea on exertion R06.09 Dyspnea type: dyspnea on exertion Moderate persistent asthma without complication J45.40 Asthma complication type: uncomplicated Asthma persistence: persistent Asthma severity: moderate Chronic allergic rhinitis J30.9 Tachycardia R00.0 Pulmonary hypertension I27.20 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
== END 2024-02-19 10:34 | disposition home or self-care (01) ==
PROVIDERS: PCP Internal Medicine; Visit Provider Hospitalist
DX: R06.09 Other forms of dyspnea (principal); J45.40 Moderate persistent asthma, uncomplicated; J30.9 Allergic rhinitis, unspecified; R00.0 Tachycardia, unspecified; I27.20 Pulmonary hypertension, unspecified; I51.89 Other ill-defined heart diseases
CPT/HCPCS: 99214; G2211

== ENCOUNTER → 2024-02-19 09:51 | Outpatient (BNVA) | payer MEDICARE, SELFPAY | PROVIDERS: PCP Internal Medicine; Visit Provider Hospitalist | DX: J45.40 Moderate persistent asthma, uncomplicated (principal); J30.9 Allergic rhinitis, unspecified; R06.09 Other forms of dyspnea; R00.0 Tachycardia, unspecified; I27.20 Pulmonary hypertension, unspecified; I51.89 Other ill-defined heart diseases | CPT/HCPCS: 99212 ==

== ENCOUNTER 2024-05-23 15:44 | Outpatient (AMB) | payer MEDICARE, SELFPAY ==
--- NOTE | 2024-05-23 15:50 | A.OFFVIS_ITS ---
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 Technology And Engineering Teacher: Technology And Engineering Teacher offered & declined Accompanied by: Self / Same As Patient Allergies No Known Allergies Allergy (Verified 05/23/24 15:54) Medication List - Last Reconciled 05/23/24 by Tahmina Johnson LPN albuterol sulfate 90 mcg/actuation (Ventolin HFA) 2 puffs inhalation QID PRN 30 days albuterol sulfate 90 mcg/actuation 2 puffs inhalation Q4-6H PRN blood sugar diagnostic (Contour Next Test Strips) use 1 test strip six to eight times daily to test blood sugar; diltiazem HCl 30 mg PO QID 30 days hydralazine 25 mg PO BID hydrochlorothiazide 25 mg PO DAILY insulin aspart U-100 (Novolog U-100 Insulin aspart) 65 units (0.65 mL) subcut DIRECTED insulin glargine (Lantus U-100 Insulin) 10 units subcut DAILY ipratropium bromide 2 sprays intranasal TID PRN levothyroxine 60 mcg PO DAILY metoprolol tartrate 25 mg PO BID mometasone 50 mcg/actuation (Nasonex) 2 sprays intranasal DAILY Symbicort 160-4.5 mcg/actuation (budesonide-formoterol) 2 puffs inhalation BID 30 days NS valsartan 160 mg PO DAILY zinc acetate (Galzin) 50 mg PO DAILY HPI Comments Details: the patient is a 73 year-old woman with a known history of asthma presenting with persistent dyspnea on exertion. 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 She had noticed increased dyspnea on exertion limiting her ability of exerting herself. She did demonstrated evidence of obstructive airway disease on her pulmonary function studies. Therefore she was treated for asthma with multiple inhalers of different classifications without any significant improvement. Therefore, we start her on nebulized therapy also without any significant improvement in her symptoms. We did review her x-ray demonstrating flattening of the diaphragms and hyperinflation. We also repeat her blood work. However, she did not respond to the inhaled therapy. This brings up the question evaluating for now Rima of diagnosis to explain her dyspnea. I explained to her that a CT scan of the chest would be helpful to better address her persistent symptoms. in addition to that she is concerned about systemic cortical steroids in view of her diabetes. This point the patient will return to using her Symbicort at least once a day. And she also has a short-acting beta agonist that she can use as needed. We did talk about the importance of warming up specially when she is going to start exercising to minimize exercise- induced bronchospasms. We also talked about pursed lip breathing to improve her respiratory capacity by increasing her intrinsic peep. 03/04/2021 the patient is here for a pulmonary follow-up visit. Since we last spoke she told me that she was having significant respiratory symptoms with chest congestion and cough for several weeks. She had been using her Ventolin HFA inhaler which appears to be the most effective 1 for her in the only 1 that gives her some relief. She did have evaluations by primary care doctor although she did not want to go to urgent care or the ER because she did not want to be expose to anybody who was sick. The patient did have an episode where her breathing became so significant she thought she was going to . she did impro ve and her respiratory symptoms have now back to baseline and she is back to using the Ventolin HFA. She is not using any of the other inhalers that will try in addition to that she has been having significant daytime drowsiness and also having a sense of throat swelling. She thought it could be 1 of her blood pressure medications so therefore she stopped all of them this includes the combination of valsartan and hydrochlorothiazide as well as amlodipine. When she stops the medication the sense of the PT drowsiness in the throat swelling sensation improved. However her blood pressure was elevated and she did go back to the valsartan hydrochlorothiazide combination. She has since that she has been doing back on an that the throat swelling sensation has returned. Therefore, she is going to talk to her primary care doctor about potentially switching her medications possibly the combination therapy to figure out which medication is potentially bother her since her symptoms improved once she stops the medication. She is not sure if she had COVID during the time that she was ill although she was tested for COVID a couple times and she was negative. Today before she leaves the hospital will have her get blood work including a COVID-19 antibody checked to see if there was any evidence of any exposure to COVID and her serology. 08/30/2021 the patient is here for a pulmonary follow-up visit. Overall she is doing better from a respiratory status. She has been exercising regularly in her cough is improved. Her chest congestion also has improved. She does use her Wixela daily and also uses her short-acting beta agonist prior to exercise. In the meantime she did follow-up with cardiology. She has had issues with elevated blood pressures and also carries other cardiovascular risk factors in addition to a positive family history of early heart disease. The patient did have an EKG and she did bring it in demonstrating some septal wall abnormalities. 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 Therefore, she will talk to her airport engineer regarding a stress test. In the meantime she complains about the nasal congestion. Sooner for works wonders for her. However now with her blood pressure she needs to be very careful with Sudafed as again increased blood pressure and increase her heart rate. Therefore we talked about alternatives including Atrovent nasal spray. She can use any conjunction with her nasocort. 08/08/2022 the patient is here for a pulmonary follow-up visit. She continues to have significant dyspnea on exertion. Even with minimal activity. Recently she went skiing with her grandchildren had a very hard time with shortness of breath to feels that the shortness of breath is getting worse. She did follow- up with cardiology in has been dealing with elevations in her blood pressure. As far as the pulmonary evaluation she has been on multiple inhalers without any significant improvement of her symptoms. She has not had pulmonary function studies in some time however. She also has not had any imaging studies either. During that visit we did go for 6 minutes walk test willing upstairs. Once we get to 3 flights of stairs heart rate went up to 135 and the patient was visibly dyspneic with dyspnea score 10/10. She rested. She denied any chest pain or pressure during that ambulation. once the patient's heart rate went over 101 she became symptomatic with some mild dyspnea. Again, once the heart r ate decreased to below 100 her symptoms of dyspnea improved. She is closely working with Cardiology. the patient is wondering about a diagnosis of pulmonary hypertension. I do believe that a cardiopulmonary exercise study may be helpful at this point to assess for etiologies of her underlying dyspnea. In anyway she was having significant dyspnea and elevations in the heart rate. Therefore, blood work will be also important to make sure she is not anemic and also checking a D-dimer to rule out the possibility of chronic thromboembolic disease. If her D-dimer is elevated then a CTA or a V/Q scan or both will be helpful in further addressing her symptoms. 08/20/2023 the patient is here for a pulmonary follow-up visit. She continues to struggle with the same symptoms. Appears to have worsening dyspnea on exertion. She states that even going from the mailbox her house she has a stop once. The patient was a very avid hiker. She even climb [employer]. The patient is struggling at this point because of significant dyspnea. We had evaluated her in the past and she did develop significant tachycardia with any activity. She has been following closely with Cardiology though still not clear. She will benefit from additional testing and therefore I will request a cardiopulmonary exercise tolerance test at [facility] to further address the physiology behind her significant dyspnea symptoms. She has been on respiratory therapy. She definitely has asthma with small airways disease that is being treated with medication. Still no significant improvement of the dyspnea symptoms. The patient has not had a chest x-ray in a couple years therefore will go ahead and repeat 1 at this time. will plan to follow-up in 4- 6 months but will discuss her findings and the CPAP once available. If the patient has any worsening issues or any other concerning issues she will call for an earlier assessment. 11/06/2023 the patient is here for pulmonary follow-up visit. She continues to complain of dyspnea on exertion. Seems to be getting worse. We did review her pulmonary function studies. Appears to have a component of small airways disease consistent with asthma current the patient has been on Wixela but no significant improvement. Will provide her with Symbicort with hopes that she can use it specially in the morning which she is mostly active. She did undergo a cardiopulmonary exercise tolerance test. During the study she did have a respiratory limitation. She was obstructive indeed. Therefore the inhaler should help some. In addition to that as she exercise she developed worsening V/Q mismatch increasing space suggesting pulmonary vascular disease. Patient likely has exercise-induced pulmonary hypertension. We did talk about any level 3 CPAP although that is very invasive. Will try to request a exercise echo and see if we can measure pulmonary pressures with exercise. We consider vasodilators therapy if indicated. 02/19/2024 the patient is here for a pulmonary follow-up visit. She continues to be about the same still complaining of dyspnea on exertion. Although she did go away to [place] and she did a lot better with the air quality there. [place] she came [place] to the [place] she had a hard time. The patient did undergo a stress echo which I did review with her. It appeared that she did not have any ischemic changes which is reassuring. 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 The patient is already on blood pressure medications for elevated blood pressure which is helpful for the diastolic dysfunction. She will need a rate controlling agent to allow her heart rate slowed down enough for her to be able to relax her left ventricle. She has tried beta-blockers in the past him with her asthma good idea. I will give her a prescription for small dose of diltiazem that she can take 4 times a day. The patient will watch closely for any adverse effects. She can also check her blood pressure and heart rate while taking the medication. If she has any issues she will call the office. She will be following up with Nephrology soon which will be helpful to adjust her blood pressure medications. She does continue the Symbicort. I did suggest that she continues use it 1 puff twice a day. Then when she is stable on the diltiazem she can try to decrease it to as needed. 05/23/2024 the patient is here for a pulmonary follow-up visit. The patient overall is doing about the same. Still having dyspnea on exertion. She did take the diltiazem but no significant improvement. She continues on the Symbicort although no significant improvement either. She has did follow-up with Cardiology no other recommendations were provided. Otherwise patient is doing okay. We did review her CPAP. My recommendation is for her to keep her heart rate no more than 75% of her maximum for her age. Her maximum heart rate will be 140 beats per minute and therefore she should keep a heart rate around 110 115 with activity. More than that will going to cause additional stress to the body increased anaerobic activity. Once the patient develops an elevated heart rate then can develop worsening diastolic cardiac function. Otherwise patient is without other complaints no imaging studies at this time. Will follow-up in the summer of 2024. If any issues arise she will call for an earlier assessment. 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 Pulmonary hypertension Tachycardia Dyspnea Chronic allergic rhinitis Throat discomfort Chest pain Asthma Dyspnea and respiratory abnormalities Family History (Updated 04/26/20 @ 22:15 by Lalito Alvarez MD) Other Asthma Social History (Updated 05/23/24 @ 15:58 by Tahmina Johnson LPN) Patient Tobacco Use Status: Never used Tobacco Review of Systems Const Denies fatigue and Denies night sweats Eyes Denies change in vision ENT Denies change in voice, Denies lip swelling, Denies mouth pain, Reports nasal congestion, Reports nasal discharge, Reports post nasal drip and Denies tongue swelling Card Denies chest pain and Reports dyspnea on exertion Resp Reports cough and Reports dyspnea on exertion GI Denies abdominal pain Musc Denies no additional complaints Neuro Denies Neuro-related abnormal movements Psych Denies no additional complaints Endo Denies fatigue Robert/Lymph Denies easy bleeding and Denies lymphadenopathy Aller/Immun Denies lip swelling and Denies tongue swelling Physical Exam Vital Signs: Last Vital Signs Pulse 72 05/23/24 15:53 BP 126/60 05/23/24 15:53 Pulse Ox 97 05/23/24 15:53 Oxygen Delivery Method Room Air 05/23/24 15:53 BMI result Body Mass Index 27.3 Const General: alert HEENT General nose exam: Nasal discharge present Mouth: Normal oral and palatal mucosa present, oropharynx normal and moist mucous membranes Throat: Yes postnasal drainage and No uvular edema Eyes Pupils: Equal, round and reactive pupils present Neck Neck: Yes normal visual inspection, Yes full ROM and Yes no lymphadenopathy Chest Chest palpation & inspection: normal inspection of the chest Resp Auscultation: clear to auscultation bilaterally, no rales, no rhonchi and no wheezes Cardio Rate: regular rate Rhythm: regular rhythm Heart sounds: S1 normal heart sound present and S2 normal heart sound present GI Palpation (GI): Soft to palpation and nontender Auscultation: normal bowel sounds General: Yes no CVA tenderness Back/Spine/Pelvis Back: no CVA tenderness Skin General skin exam: rashes and/or lesions noted Neuro Cranial nerves: Yes Equal, round and reactive pupils present Assessment & Plan Assessment & Plan (1) Dyspnea: Code(s): R06.00 - Dyspnea, unspecified Category: Medical Qualifiers: Dyspnea type: dyspnea on exertion Qualified Code(s): R06.09 - Other forms of dyspnea (2) Asthma: Code(s): J45.909 - Unspecified asthma, uncomplicated Category: Medical Qualifiers: Asthma complication type: uncomplicated Asthma persistence: persistent Asthma severity: moderate Qualified Code(s): J45.40 - Moderate persistent asthma, uncomplicated (3) Chronic allergic rhinitis: Code(s): J30.9 - Allergic rhinitis, unspecified Category: Medical (4) Tachycardia: Code(s): R00.0 - Tachycardia, unspecified Category: Medical (5) Pulmonary hypertension: Comment: secondary to the elevated LVEDP. 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: Comment: stress induced Code(s): I51.89 - Other ill-defined heart diseases Category: Medical Plan continue symbicort for now continue her exercise program, to keep pulse no more than 75% of maximum HR F/U 8-12 months Medications: New doxycycline hyclate 100 mg PO BID 20 caps 0RF 10 days Coding Level of Care Code Est Pt Level 4 (39200) Diagnoses Dyspnea on exertion R06.09 Dyspnea type: dyspnea on exertion Moderate persistent asthma without complication J45.40 Asthma complication type: uncomplicated Asthma persistence: persistent Asthma severity: moderate Chronic allergic rhinitis J30.9 Tachycardia R00.0 Pulmonary hypertension I27.20 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
[2024-05-23 15:53] VITALS: BP 126/60; PULSE 72; O2SAT 97; BMI 27.3
== END 2024-05-23 16:18 | disposition home or self-care (01) ==
PROVIDERS: PCP Internal Medicine; Visit Provider Hospitalist
DX: R06.09 Other forms of dyspnea (principal); J45.40 Moderate persistent asthma, uncomplicated; J30.9 Allergic rhinitis, unspecified; R00.0 Tachycardia, unspecified; I27.20 Pulmonary hypertension, unspecified; I51.89 Other ill-defined heart diseases
CPT/HCPCS: 99214

== ENCOUNTER → 2024-05-23 15:44 | Outpatient (BNVA) | payer MEDICARE, SELFPAY | PROVIDERS: PCP Internal Medicine; Visit Provider Hospitalist | DX: R06.09 Other forms of dyspnea (principal); J45.40 Moderate persistent asthma, uncomplicated; J30.9 Allergic rhinitis, unspecified; R00.0 Tachycardia, unspecified; I27.20 Pulmonary hypertension, unspecified; I51.89 Other ill-defined heart diseases | CPT/HCPCS: 99212 ==

== ENCOUNTER 2025-01-26 13:14 | Outpatient (AMB) | payer MEDICARE, SELFPAY ==
--- NOTE | 2025-01-26 13:17 | A.OFFVIS_ITS ---
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 She had noticed increased dyspnea on exertion limiting her ability of exerting herself. She did demonstrated evidence of obstructive airway disease on her pulmonary function studies. Therefore she was treated for asthma with multiple inhalers of different classifications without any significant improvement. Therefore, we start her on nebulized therapy also without any significant improvement in her symptoms. We did review her x-ray demonstrating flattening of the diaphragms and hyperinflation. We also repeat her blood work. However, she did not respond to the inhaled therapy. This brings up the question evaluating for now Rima of diagnosis to explain her dyspnea. I explained to her that a CT scan of the chest would be helpful to better address her persistent symptoms. in addition to that she is concerned about systemic cortical steroids in view of her diabetes. This point the patient will return to using her Symbicort at least once a day. And she also has a short-acting beta agonist that she can use as needed. We did talk about the importance of warming up specially when she is going to start exercising to minimize exercise- induced bronchospasms. We also talked about pursed lip breathing to improve her respiratory capacity by increasing her intrinsic peep. 03/04/2021 the patient is here for a pulmonary follow-up visit. Since we last spoke she told me that she was having significant respiratory symptoms with chest congestion and cough for several weeks. She had been using her Ventolin HFA inhaler which appears to be the most effective 1 for her in the only 1 that gives her some relief. She did have evaluations by primary care doctor although she did not want to go to urgent care or the ER because she did not want to be expose to anybody who was sick. The patient did have an episode where her breathing became so significant she thought she was going to . she did improve and her respiratory symptoms have now back to baseline and she is back to using the Ventolin HFA. She is not using any of the other inhalers that will try in addition to that she has been having significant daytime drowsiness and also having a sense of throat swelling. She thought it could be 1 of her blood pressure medications so therefore she stopped all of them this includes the combination of valsartan and hydrochlorothiazide as well as amlodipine. When she stops the medication the sense of the PT drowsiness in the throat swelling sensation improved. However her blood pressure was elevated and she did go back to the valsartan hydrochlorothiazide combination. She has since that she has been doing back on an that the throat swelling sensation has returned. Therefore, she is going to talk to her primary care doctor about potentially switching her medications possibly the combination therapy to figure out which medication is potentially bother her since her symptoms improved once she stops the medication. She is not sure if she had COVID during the time that she was ill although she was tested for COVID a couple times and she was neg ative. Today before she leaves the hospital will have her get blood work including a COVID-19 antibody checked to see if there was any evidence of any exposure to COVID and her serology. 08/30/2021 the patient is here for a pulmonary follow-up visit. Overall she is doing better from a respiratory status. She has been exercising regularly in her cough is improved. Her chest congestion also has improved. She does use her Wixela daily and also uses her short-acting beta agonist prior to exercise. In the meantime she did follow-up with cardiology. She has had issues with elevated blood pressures and also carries other cardiovascular risk factors in addition to a positive family history of early heart disease. The patient did have an EKG and she did bring it in demonstrating some septal wall abnormalities. 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 In the meantime she complains about the nasal congestion. Sooner for works wonders for her. However now with her blood pressure she needs to be very careful with Sudafed as again increased blood pressure and increase her heart rate. Therefore we talked about alternatives including Atrovent nasal spray. She can use any conjunction with her nasocort. 08/08/2022 the patient is here for a pulmonary follow-up visit. She continues to have significant dyspnea on exertion. Even with minimal activity. Recently she went skiing with her grandchildren had a very hard time with shortness of breath to feels that the shortness of breath is getting worse. She did follow- up with cardiology in has been dealing with elevations in her blood pressure. As far as the pulmonary evaluation she has been on multiple inhalers without any significant improvement of her symptoms. She has not had pulmonary function studies in some time however. She also has not had any imaging studies either. During that visit we did go for 6 minutes walk test willing upstairs. Once we get to 3 flights of stairs heart rate went up to 135 and the patient was visibly dyspneic with dyspnea score 10/10. She rested. She denied any chest pain or pressure during that ambulation. once the patient's heart rate went over 101 she became symptomatic with some mild dyspnea. Again, once the heart rate decreased to below 100 her symptoms of dyspnea improved. She is closely working with Cardiology. the patient is wondering about a diagnosis of pulmonary hypertension. I do believe that a cardiopulmonary exercise study may be helpful at this point to assess for etiologies of her underlying dyspnea. In anyway she was having significant dyspnea and elevations in the heart rate. Therefore, blood work will be also important to make sure she is not anemic and also checking a D-dimer to rule out the possibility of chronic thromboembolic disease. If her D-dimer is elevated then a CTA or a V/Q scan or both will be helpful in further addressing her symptoms. 08/20/2023 the patient is here for a pulmonary follow-up visit. She continues to struggle with the same symptoms. Appears to have worsening dyspnea on exertion. She states that even going from the mailbox her house she has a stop once. The patient was a very avid hiker. She even climb [employer]. The patient is struggling at this point because of significant dyspnea. We had evaluated her in the past and she did develop significant tachycardia with any activity. She has been following closely with Cardiology though still not clear. She will benefit from additional testing and therefore I will request a cardiopulmonary exercise tolerance test at [facility] to further ad dress the physiology behind her significant dyspnea symptoms. She has been on respiratory therapy. She definitely has asthma with small airways disease that is being treated with medication. Still no significant improvement of the dyspnea symptoms. The patient has not had a chest x-ray in a couple years therefore will go ahead and repeat 1 at this time. will plan to follow-up in 4- 6 months but will discuss her findings and the CPAP once available. If the patient has any worsening issues or any other concerning issues she will call for an earlier assessment. 11/06/2023 the patient is here for pulmonary follow-up visit. She continues to complain of dyspnea on exertion. Seems to be getting worse. We did review her pulmonary function studies. Appears to have a component of small airways disease consistent with asthma current the patient has been on Wixela but no significant improvement. Will provide her with Symbicort with hopes that she can use it specially in the morning which she is mostly active. She did undergo a cardiopulmonary exercise tolerance test. During the study she did have a respiratory limitation. She was obstructive indeed. Therefore the inhaler should help some. In addition to that as she exercise she developed worsening V/Q mismatch increasing space suggesting pulmonary vascular disease. Patient likely has exercise-induced pulmonary hypertension. We did talk about any level 3 CPAP although that is very invasive. Will try to request a exercise echo and see if we can measure pulmonary pressures with exercise. We consider vasodilators therapy if indicated. 02/19/2024 the patient is here for a pulmonary follow-up visit. She continues to be about the same still complaining of dyspnea on exertion. Although she did go away to [place] and she did a lot better with the air quality there. When she came back to the [place] she had a hard time. The patient did undergo a stress echo which I did review with her. It appeared that she did not have any ischemic changes which is reassuring. 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 The patient is already on blood pressure medications for elevated blood pressure which is helpful for the diastolic dysfunction. She will need a rate controlling agent to allow her heart rate slowed down enough for her to be able to relax her left ventricle. She has tried beta-blockers in the past him with her asthma good idea. I will give her a prescription for small dose of diltiazem that she can take 4 times a day. The patient will watch closely for any adverse effects. She can also check her blood pressure and hear t rate while taking the medication. If she has any issues she will call the office. She will be following up with Nephrology soon which will be helpful to adjust her blood pressure medications. She does continue the Symbicort. I did suggest that she continues use it 1 puff twice a day. Then when she is stable on the diltiazem she can try to decrease it to as needed. 05/23/2024 the patient is here for a pulmonary follow-up visit. The patient overall is doing about the same. Still having dyspnea on exertion. She did take the diltiazem but no significant improvement. She continues on the Symbicort although no significant improvement either. She has did follow-up with Cardiology no other recommendations were provided. Otherwise patient is doing okay. We did review her CPAP. My recommendation is for her to keep her heart rate no more than 75% of her maximum for her age. Her maximum heart rate will be 140 beats per minute and therefore she should keep a heart rate around 110 115 with activity. More than that will going to cause additional stress to the body increased anaerobic activity. Once the patient develops an elevated heart rate then can develop worsening diastolic cardiac function. Otherwise patient is without other complaints no imaging studies at this time. Will follow-up in the summer of 2024. If any issues arise she will call for an earlier assessment. 01/26/2025 the patient is here for pulmonary follow-up visit. She continues have significant shortness of breath with activity. She did follow-up in [place] and had a further evaluation for pulmonary hypertension. It is felt that based on all the studies she does not have evidence of pulmonary hypertension. Although the possibility of underlying cardiac disease is there. She is going to undergo additional cardiac testing at this time. In the meantime she stopped all her the inhalers. Her asthma appears to be stable. Will have her get spirometry today. Based on the spirometry she still has a mild obstruction and significant small airways disease consistent with her asthma history. Will go ahead and send her Symbicort back that she can use as needed. She should also try Singulair. In the meantime she is going to wait for her cardiac workup. She is going to continue with the workup in [place] and will follow-up in 4-6 months. If she has any issues prior to this she will call for an earlier assessment. 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 Pulmonary hypertension Tachycardia Dyspnea Chronic allergic rhinitis Throat discomfort Chest pain Asthma Dyspnea and respiratory abnormalities Family History (Updated 04/26/20 @ 22:15 by Lalito Alvarez MD) Other Asthma Social History Patient Tobacco Use Status: Never used Tobacco Review of Systems Const Denies fatigue and Denies night sweats Eyes Denies change in vision ENT Denies change in voice, Denies lip swelling, Denies mouth pain, Reports nasal congestion, Reports nasal discharge, Reports post nasal drip and Denies tongue swelling Card Denies chest pain and Reports dyspnea on exertion Resp Reports cough and Reports dyspnea on exertion GI Denies abdominal pain Musc Denies no additional complaints Neuro Denies Neuro-related abnormal movements Psych Denies no additional complaints Endo Denies fatigue Robert/Lymph Denies easy bleeding and Denies lymphadenopathy Aller/Immun Denies lip swelling and Denies tongue swelling Physical Exam Vital Signs: Last Vital Signs Pulse 68 01/26/25 13:18 BP 154/60 H 01/26/25 13:18 Pulse Ox 97 01/26/25 13:18 Oxygen Delivery Method Room Air 01/26/25 13:18 BMI result Body Mass Index 27.1 Const General: alert HEENT General nose exam: Nasal discharge present Mouth: Normal oral and palatal mucosa present, oropharynx normal and moist mucous membranes Throat: Yes postnasal drainage and No uvular edema Eyes Pupils: Equal, round and reactive pupils present Neck Neck: Yes normal visual inspection, Yes full ROM and Yes no lymphadenopathy Chest Chest palpation & inspection: normal inspection of the chest Resp Auscultation: clear to auscultation bilaterally, no rales, no rhonchi and no wheezes Cardio Rate: regular rate Rhythm: regular rhythm Heart sounds: S1 normal heart sound present and S2 normal heart sound present GI Palpation (GI): Soft to palpation and nontender Auscultation: normal bowel sounds General: Yes no CVA tenderness Back/Spine/Pelvis Back: no CVA tenderness Skin General skin exam: rashes and/or lesions noted Neuro Cranial nerves: Yes Equal, round and reactive pupils present Office Procedures Spirometry Testing Spirometry Comments: In office spirometry completed with results given to Dr Alvarez. 61875- Spirometry Results Reviewed Results Reviewed: Spirometry 01/26/2025 mild obstruction, small airways disease. Bronchodilators were not used. Assessment & Plan Assessment & Plan (1) Dyspnea: Code(s): R06.00 - Dyspnea, unspecified Category: Medical Qualifiers: Dyspnea type: dyspnea on exertion Qualified Code(s): R06.09 - Other forms of dyspnea (2) Asthma: Code(s): J45.909 - Unspecified asthma, uncomplicated Category: Medical Qualifiers: Asthma severity: moderate Asthma persistence: persistent Asthma complication type: uncomplicated Qualified Code(s): J45.40 - Moderate persistent asthma, uncomplicated (3) Chronic allergic rhinitis: Code(s): J30.9 - Allergic rhinitis, unspecified Category: Medical (4) Tachycardia: Code(s): R00.0 - Tachycardia, unspecified Category: Medical (5) 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: Comment: stress induced Code(s): I51.89 - Other ill-defined heart diseases Category: Medical Plan continue symbicort for now continue her exercise program, to keep pulse no more than 75% of maximum HR cardiac workup F/U 4-6 months Orders: Orders AMB Spirometry Testing 01/26/25 J45.40 - Moderate persistent asthma, uncomplicated Medications: Refilled Symbicort 160-4.5 mcg/actuation (budesonide-formoterol) 2 puffs inhalation BID 10.2 grams 11RF 30 days NS J44.89 - Other specified chronic obstructive pulmonary disease Coding Level of Care Code Est Pt Level 4 (07647) Complex EM visit Add On G2211 Diagnoses Dyspnea on exertion R06.09 Dyspnea type: dyspnea on exertion Moderate persistent asthma without complication J45.40 Asthma severity: moderate Asthma persistence: persistent Asthma complication type: uncomplicated Chronic allergic rhinitis J30.9 Tachycardia R00.0 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 I51.89 CPT Codes Spirometry - CPT: 09116- Spirometry ([id number]) Time Spent (min) 17
[2025-01-26 13:18] VITALS: BP 154/60; PULSE 68; O2SAT 97; BMI 27.1
--- OUTSIDE RECORDS SUMMARY | 2025-01-26 14:18 | XMS_ITS | Encounter Summary ---
Author Organization [facility], Address [address] [place] [address] Phone Care Team Providers Care Human Resource Adviser Name Role Phone Radha Pierson MD Primary Care Provider [phone] Encounter Details Date Type Department Care Team (Late st Contact Info) Description 08/18/2022 Documentation Only [facility], [address] [place] [id number] Taisha Sky MD [address] [place] [address] Social History Tobacco Use Types Packs/Day Years Used Date Smoking Tobacco: Never Assessed Comments Unknown Sex and Gender Information Value Date Recorded Sex Assigned at Not on file Legal Sex Female 10:12 AM EST Gender Identity Not on file Sexual Orientation Not on file documented as of this encounter Plan of Treatment Not on file documented as of this encounter Visit Diagnoses Not on filedocumented in this encounter Care Teams Human Resource Adviser Relationship Specialty Start Date End Date Radha Pierson MD [address] [facility] [address] [place] [phone] PCP - General Internal Medicine 08/18/22 documented as of this encounter
--- OUTSIDE RECORDS SUMMARY | 2025-01-26 14:18 | XMS_ITS | Continuity of Care Document ---
Author Organization [facility] Address [address] [place] [address] Phone [phone] Social History Type Date Description Comments Sex Female Sex Unknown Medical Devices Description No Information Available Encounters Description No Information Available Assessments Description No Information Available Plan of Treatment No Information Available Functional Status Description No Information Available Mental Status Description No Information Available Referrals Description No Information Available
--- OUTSIDE RECORDS SUMMARY | 2025-01-26 14:18 | XMS_ITS | Clinical Summary ---
Author Organization [facility] Address [address] [place] [address] Care Team Providers Care Unix System Administrator Name Role Phone Radha Pierson MD Primary Care Provider [phone] Allergies No known active allergies Medications Medication Sig Dispensed Refills Start Date End Date Status NOVOLOG 100 UNIT/ML injection 3 07/08/2015 Active levothyroxine (SYNTHROID, LEVOXYL) tablet 150 mcg 1 07/15/2015 Active ramipril (ALTACE) 5 MG capsule 5 07/15/2015 Active Multiple Vitamins-Minerals (MULTIVITAMIN ADULT PO) Take 1 tablet by mouth daily. 0 Active Zinc 50 MG CAPS Take 1 tablet by mouth daily. 0 Active Magnesium 250 MG TABS Take 1 tablet by mouth daily. 0 Active [place]-3 Fatty Acids (FISH OIL) 1000 MG CAPS Take 1 tablet by mouth daily. 0 Active cholecalciferol (VITAMIN D3) 1000 UNITS tablet Take 1,000 Units by mouth daily. 0 Active Ascorbic Acid (VITAMIN C) 1000 MG tablet Take 1,000 mg by mouth daily. 0 Active Chromium Picolinate 500 MCG TABS Take 1 tablet by mouth daily. 0 Active aspirin 325 MG tablet Take 325 mg by mouth daily. 0 Active Travoprost, NELLIE Free, 0.004 % SOLN Apply 1 drop to eye every night at bedtime. 0 Active ADVAIR DISKUS 100-50 MCG/DOSE DISKUS 2 07/15/2015 Active Biotin 5 MG CAPS Take 1 tablet by mouth daily. 0 Active TURMERIC CURCUMIN PO Take 1 capsule by mouth daily. 0 Active Active Problems Problem Noted Date Diagnosed Date Bronchitis with airway obstruction 12/24/2015 Overweight (BMI 25.0-29.9) 08/06/2015 Diabetes mellitus type 2 in nonobese 08/06/2015 Family History Medical History Relation Name Comments Breast cancer Cousin Arthritis Father Hyperlipidemia Father Hypertension Father Stroke Father COPD Mother Anesthesia problems Sister Hyperlipidemia Sister Hypertension Sister Colon cancer Neg Hx Endometrial cancer Neg Hx Ovarian cancer Neg Hx Relation Name Status Comments Cousin Father Mother Sister Social History Tobacco Use Types Packs/Day Years Used Date Smoking Tobacco: Never Smokeless Tobacco: Never Alcohol Use Standard Drinks/Week Comments No 0 (1 standard drink = 0.6 oz pur e alcohol) Sex and Gender Information Value Date Recorded Sex Assigned at Female 02/28/2022 11:36 AM EDT Gender Identity Female 02/28/2022 11:36 AM EDT Sexual Orientation Not on file Job Start Date Occupation Industry Not on file Not on file Not on file Last Filed Vital Signs Vital Sign Reading Time Taken Comments Blood Pressure 154/64 08/13/2015 8:59 AM EST Pulse 64 08/06/2015 9:47 AM EST Temperature - - Respiratory Rate - - Oxygen Saturation - - Inhaled Oxygen Concentration - - Weight 64 kg (141 lb) 12/20/2021 1:26 PM EDT Height 152.4 cm (5') 12/20/2021 1:26 PM EDT Body Mass Index 27.54 12/20/2021 1:26 PM EDT Plan of Treatment Health Maintenance Due Date Last Done Comments Hepatitis C Screening 1950 Pneumococcal Vaccine (1 of 2 - PCV) 1956 Depression Screening 1962 Preventative Health Evaluation 1968 DTap / Tdap / Td (1 - Tdap) 1969 Colon Cancer Screening (Colonoscopy) 09/19/1995 RSV Adult > 60+ Yrs or (1 - Risk 60-74 years 1-dose series) 2010 Fall Risk Assessment 09/19/2015 Osteoporosis Screening (DEXA Scan) 04/29/2017 04/29/2015 Breast Cancer Screening (Mammogram) 05/01/2018 05/01/2016, 04/29/2015 Shingrix-Zoster Vaccine (2 o f 2) 12/10/2020 10/15/2020 COVID-19 Vaccine (3 - 2023-2 5 season) 2024 09/15/2020, 08/25/2020 Influenza Vaccine (#1) 2025 04/15/2014 Hepatitis B Vaccines Aged Out No long er eligible based on patient's age to complete this topic RSV Ped < 20 months Aged Out No longe r eligible based on patient's age to complete this topic Care Teams Unix System Administrator Relationship Specialty Start Date End Date Radha Pierson MD [address] [facility] [address] [place] [address] PCP - General Internal Medicine 12/20/21
--- OUTSIDE RECORDS SUMMARY | 2025-01-26 14:18 | XMS_ITS | Data Portability ---
Author Organization [place] [facility],, LATISHA SAUNDERS MD Address [address] [facility] [address] [place] [address] Care Team Providers Care Linen Room Worker Name Role Phone BRITT HENRIQUEZ Primary Care Provider Assessment No assessment recorded. Plan of Treatment Reminders Order Date Submit Date Provider Last Modified By Organization Details Last Modified Time Details Appointments None recorded. Lab pap test, thinprep, cervical 2014 015 [facility], Cytopathology Service, [address] [place], [address], 5 11:11:36 fecal occult blood, stool 2014 015 [email or web address] In-Office Order, Internal Use Only DO Not Attach Compendium DO Not Attach Compendium, Do Not Delete/merge, [id number] 5 11:01:42 Referral None recorded. Procedures None recorded. Surgeries None recorded. Imaging MAMMO, screening, digital, bilateral 2014 015 [email or web address] [facility] [address] [place], [address], 5 16:19:41 Medication Orders None recorded. Patient TargetsNo targets recorded. Patient Instructions Encounter Date Encounter Id Patient Instructions Last Modified By Organization Details Last Modified Time 04/22/2015 [id number] She is here as a new patient for annual exam. She had a sling done in the late s but her bladder prolapse never improved and has worsened over time. She notes when she does increased physical activity. She had a 10 pound 6 oz baby vaginally. She had tried estrogen vaginal cream daily for a year without improvement. She declines further surgery. We discussed pessary, she will consider this. She notes it does not bother her every day, only when she is active, and then is is a pressure, not painfully. there is a 2 cm mass just superior to the mid left clavicle. It is firm, rounded, smooth mobile, nontender. It may be a lipoma or a sentinel node. She has previously had a lipoma excised, and it may be that, however she and I discussed that it is prudent to look into this as it could be a sentinel node indication of cancer within the abdominal cavity. 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 She appears to be doing well. She is advised to get 1500 mg of calcium daily into her diet and supplements combined. There is a health benefit with adequate vitamin D supplementation to at least 400 units daily, daily aerobic exercise of 30 minutes, and stress reduction. Monthly self breast exam was taught, and stressed, and is advised to call if she discovers any new mass in the breast. Seat belt use for herself and passengers are advised. There are significant health benefits of becoming and remainig fit, with an optimal BMI. There is a potential reduction in chronic discomfort, diminished risks of hypertension, diabetes, and heart disease with the proper weight management. With a recommended BMI there can be improved mobility as she ages. Strategies to reach and maintain her target weight were discussed in detail. [email or web address] Not available 04/26/2015 11:01:42 Reason for Referral None Reported. Results Created Date Observation Date Name Description Value Unit Range Abnormal Flag Note LastModifiedBy Organization Detail LastModifiedTime 04/22/20 15 04/22/2015 fecal occul t blood , stool Occult Blood negati ve Not Available In-Office Order Internal Use Only DO Not Attach Compendium DO Not Attach Compendium, Do Not Delete/merge, [id number] 04/22/2015 14:52:45 04/22/20 15 04/22/2015 pap, LB [id number] ThinP rep Pap, Image d: NEGAT JOHANNA FOR SQUAM OUS INTRA EPITH ELIAL REUBEN [place] AND HERO DUPREE . Atrop hy with infla mmati on is prese nt. Corrine Bragg ams, CT( CP) (Case elect joão barkley leticia d 04 28 2015) ADEQU ACY: Satis facto ry. Endoc ervic al/tr ansfo rmati on zone compo nent prese nt. SOURC E: ThinP rep Pap, Cervi wanda, Image d CLINI WANDA INFOR BALDO N: HPV If Diagn osis of ASCUS . Menop ause * Cytop athol ogy servi gianni provi ded by [facility] at the above addre ss. Not Available [facility], Cytopathology Service [address] [place], [address], 04/29/2015 11:11:36 04/23/20 15 03/31/2013 MAMMO , josee tabitha, digit al, bilat eral No observ ation record ed. [facility] ([facility]) [address] [place], [address], 04/23/2015 08:31:30 Result Notes None recorded. Problems Name Problem SNOMED Code Status Onset Date Resolution Date Notes Provider Name and Address Organization Details Recorded Time Cystocele 896743026 Active third degree with Valsalva, first without, only first degree uterine prolapse. Latisha Saunders MD [address], [place], [phone], [facility], 17:06:22 Insulin treated type 2 diabetes mellitus 940240591 Active has pump and telemetry device Latisha Saunders MD [address], [place], [phone], [place] [facility], 17:06:22 Lipoma 10532962 Active she had one removed previously , may have one above her left clavicle, or, it that may be a sentinel lymph node, she is to see PCP Latisha Saunders MD [address] [facility],[address], [place], [address], [facility], 11:03:30 Problem Notes None recorded. Procedures Surgical History Date Name Laterality Status Provider Name and Address Organization Details Recorded Time 07/16/1987 Other completed Jeny Hernandez [place] - [facility], 04/22/2015 14:52:00 07/16/1987 Other completed Jney Hernandez [place] - [facility], 04/22/2015 14:52:00 Other completed Latisha Saunders MD [address] [facility],[address], [place], [address], [place] [facility], 04/22/2015 17:07:46 Imaging Results None recorded. Procedure Notes None recorded. Medical Equipment None Reported. Allergies No known drug allergies Medications Name Sig Start Date Stop Date Status Note LastModified by Organization Details LastModified Time Glucagon Emergency Kit 1 mg solution for injection active Not Available Not Available No t Available Advair Diskus 100 mcg-50 mcg/dose powder for inhalation INHALE 1 PUFF BY MOUTH TWICE DAILY active Not Available Not Available No t Available Humalog U-100 Insulin 100 unit/mL subcutaneous solution USE UP TO 36 UNITS VIA PUMP DAILY CONTINUOUS SUBCUTANEOU SLY 90 DAY active Not Available Not Available N ot Available levothyroxin e 125 mcg tablet TAKE 1 & 1/2 TABS ONE DAY A WEEK AND 1 TABLET 6 DAYS A WEEK ONCE A DAY active Not Available Not Available N ot Available levothyroxin e 150 mcg tablet active Not Available Not Available Not Available Novolog U-100 Insulin aspart 100 unit/mL subcutaneous solution DIRECTED UPTO 36 UNITS DALILY CONTINUOUS VIA PUMP SUBCUTANEOU SLY 90 DAY active Not Available Not Available N ot Available ramipril 5 mg capsule TAKE ONE CAPSULE BY MOUTH DAILY active Not Available Not Available Not Available levothyroxin e 112 mcg tablet active Not Available Not Available Not Available magnesium active Not Available Not Tricia ilable Not Available aspirin active Not Available Not Avail able Not Available zinc active Not Available Not Availa ble Not Available Fish Oil active Not Available Not Avai lable Not Available Vitamin D3 active Not Available Not Av ailable Not Available Multi For Her active Not Available Not Available Not Available Contour Next Test Strips DIRECTED USE TO TEST BG UP TO 8 TIMES PER DAY active Not Available Not Available No t Available Vitals Date Recorded Body weight Body height Body mass index (BMI) Heart rate Systolic And Diastolic Provider Name and Address Organization Details Last Updated DateTime 04/22/2015 73481.65 0274 g 151.13 cm 27.8 kg/m2 64 /min 139/63 mm[Hg] Jeny Hernandez [place] [facility], 04/22/2015 14:52:00 Social History Question Answer Notes LastModified by Organizat ion Details LastModified Time Tobacco Smoking Status Never Smoker Not Available [employer] 05/18/2020 03:19:40 What Is Your Level Of Caffeine Consumption? Moderate [id number] Information not available 05/18/2020 What Type Of Diet Are You Following? REGULAR [id number] Information not available 05/18/2020 Which Illicit Or Recreational Drugs Have You Used? No [id number] Information not available 05/18/2020 Do You Reside In Or Have You Traveled To An Area Where Ebola Virus Transmission Is Active? No [id number] Information not available 05/18/2020 Education 4 Year College [email or web address] Information not available 04/22/2015 Marital Status [email or web address] Informatio n not available 04/22/2015 Are You Sexually Active? Yes [id number] Information not available 05/18/2020 How Much Tobacco Do You Smoke? No [id number] Information not available 05/18/2020 General Stress Level Low [facility] Information not available 04/22/2015 Sex: Unknown Functional Status Question Answer Note LastModified by Organization D etails LastModified Time What is your level of alcohol consumption? 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 Heavy [id number] Information not available 05/18/2020 Mental Status None recorded. Family History Relationship Description Onset Age of this Age Resolved Age Notes LastModified by Organization Details LastModified Time Unspecified Relation Malignant tumor of breast 46 46 cousin [email or web address] Not available 2014 14:52:00 Father Heart disease [email or web address] Not available 02/2015 15:25:33 Medical History Condition Response Anesthesia complications N High Blood Pressure N Kidney or Bladder Problems Y Thyroid Problems Y Depression N Lung Disease N GI Problems N Defects or Inherited Disease N Anemia N History of Ovarian Cancer N History of Breast Cancer N BRCA testing in past N Psychiatric Illness N Anxiety Disorder N Diabetes Y Arthritis N Headaches or Migraines N Infertility N Asthma Y Endometriosis N History of Cancer N Hepatitis N Heart Disease N Hypertension N Gynecological History Statement/Question Response If Post Menopausal, Age at Menopause 50 Age at Menarche 12 Age at First Child 23 Obstetrics History GPAL:G 2 P 2 0 0 2 Type Value Full Term 2 Living 2 Total 2 Immunizations Vaccine Type Date Status Note Provider Nam e and Address Organization Details Recorded Time Influenza, split virus, trivalent, preservative 4 completed Jeny riggins [place] - [facility], 04/22/2015 14:52:00 Past Encounters Encounter ID Performer Location Encounter Start Date Encounter Closed Date Diagnosis/Indication Diagnosis SNOMED-CT Code Diagnosis ICD10 Code Diagnosis Note [id number] MD LATISHA Ojeda MD [address] [facility] [address] [place] [address] 04/22/2015 14:20:05 04/26/2015 16:19:41 Specialized medical examination 82938338 Z01.419 Screening for malignant neoplasm of rectum 654178539 Z12.12 Screening mammography 24 901639 Z12.31 Health Concerns Section Related Observation LastModified by Organization Detai ls LastModified Time None Recorded Concern Status LastModified by Organization Details LastModified Time None Recorded Advance Directives Directive None Recorded Payers Insurance Date Sequence Insurance Name Policy Number Policy [place] Covered Member ID [place] Member ID Guarantor Name 10/31/2016 1 [employer] (POS) [id number] Flor Retana [id number] Flor Retana OBGyn Episode No OBEpisode recorded.
== END 2025-01-26 14:03 | disposition home or self-care (01) ==
LOC: HO.HPS 13:15
PROVIDERS: PCP Internal Medicine; Visit Provider Hospitalist
DX: R06.09 Other forms of dyspnea (principal); J45.40 Moderate persistent asthma, uncomplicated; J30.9 Allergic rhinitis, unspecified; R00.0 Tachycardia, unspecified; I51.89 Other ill-defined heart diseases
CPT/HCPCS: 99214; G2211

== ENCOUNTER → 2025-01-26 13:14 | Outpatient (BNVA) | payer MEDICARE, SELFPAY | PROVIDERS: PCP Internal Medicine; Visit Provider Hospitalist | DX: J45.40 Moderate persistent asthma, uncomplicated (principal); R06.09 Other forms of dyspnea; J30.9 Allergic rhinitis, unspecified; R00.0 Tachycardia, unspecified; I51.89 Other ill-defined heart diseases | CPT/HCPCS: 94010; 99212 ==

== ENCOUNTER → 2025-06-18 08:21 | Outpatient (REF) | payer MEDICARE, SELFPAY ==
--- OUTSIDE RECORDS SUMMARY | 2025-06-18 08:53 | XMS_ITS | Encounter Summary ---
Author Organization [facility], Address [address] [place] [address] Phone Care Team Providers Care Charter Bus Driver Name Role Phone Radha Pierson MD Primary Care Provider [phone] Encounter Details Date Type Department Care Team (Late st Contact Info) Description 08/18/2022 Documentation Only [facility], [address] [place] [phone] Taisha Sky MD [address] [place] [address] Social History Tobacco Use Types Packs/Day Years [...] on filedocumented in this encounter Care Teams Charter Bus Driver Relationship Specialty Start Date End Date Radha Pierson MD [address] [facility] [address] [place] [phone] PCP - General Internal Medicine 08/18/22 documented as of this encounter
--- OUTSIDE RECORDS SUMMARY | 2025-06-18 08:53 | XMS_ITS | Clinical Summary ---
Author Organization [facility] Prior to 12/13/[address] [place] [address] Care Team Providers Care Training Project Manager Name Role Phone Radha Pierson MD Primary Care Provider [phone] Allergies No known active allergies Medications Medication [...] 1 tablet by mouth daily. 0 Active [place]-3 Fatty Acids (FISH OIL) 1000 MG CAPS [...] 2) 12/10/2020 10/15/2020 COVID-19 Vaccine (3 - 2024-2 6 season) 2025 09/15/2020, 08/25/2020 Influenza Vaccine (#1) 2025 04/15/2014 Hepatitis B Vaccines Aged Out No long er eligible based on patient's age to complete this topic RSV Ped < 20 months Aged Out No longe r eligible based on patient's age to complete this topic Care Teams Training Project Manager Relationship Specialty Start Date End Date Radha Pierson MD [address] [place] [phone] PCP - General Internal Medicine 12/20/21
--- OUTSIDE RECORDS SUMMARY | 2025-06-18 08:53 | XMS_ITS | Continuity of Care Document ---
Author Organization [facility] Address [address] [facility] [address] [place] [address] Phone [phone] Social History Type Date Description Comments Sex Female Sex Unknown Medical Devices Description No Information Available Encounters Description No Information Available Assessments Description No Information Available Plan of Treatment No Information Available Functional Status Description No Information Available Mental Status Description No Information Available Referrals Description No Information Available
--- OUTSIDE RECORDS SUMMARY | 2025-06-18 08:53 | XMS_ITS ---
Author Name [facility] Organization Unknown Encounters Encounter Type Encounter Reason Primary Diagnosis Location Date Ambulatory [facility] 01/09/2025 Ambulatory [facility] 04/25/2024 Care Team Organization Name Specialty Phone Email Start Date End Da te [facility] 11/08/2024 [facility] 06/15/2022
--- OUTSIDE RECORDS SUMMARY | 2025-06-18 08:53 | XMS_ITS | Clinical Summary ---
Author Organization [facility], Address [address] [place] [address] [place] [address] Phone Care Team Providers Care Cabinet Finisher Name Role Phone Radha Pierson MD Primary Care Provider [phone] Allergies No known active allergies Medications Accu-Chek Guide Test test strip USE TO CHECK BLOOD SUGARS FOUR TIMES DAILY BEFORE MEALS AND AT NIGHT 4 Active hydroCHLOROthia zide 25 MG tablet 4 Active Lantus SoloStar 100 UNIT/ML injection INJECT 9 UNITS UNDER THE SKIN EVERY NIGHT AT BEDTIME NEEDED FOR INSULIN PUMP FAILURE 4 Active HumaLOG 100 UNIT/ML solution ADMINISTER 65 UNITS UNDER THE SKIN DAILY THROUGH INSULIN PUMP Active valsartan (DIOVAN) 80 MG tablet Take 1 tablet (80 mg total) by mouth in the morning and 1 tablet (80 mg total) in the evening. 4 Active dilTIAZem (CARDIZEM) 30 MG immediate release tablet Take 1 tablet (30 mg total) by mouth in the morning and 1 tablet (30 mg total) in the evening and 1 tablet (30 mg total) before bedtime. 4 Active Active Problems Problem Noted Date Diagnosed Date Insulin treated type 2 diabetes mellitus 024 Hypertension 07/04/2024 Pulmonary hypertension, not otherwise specified 07/04/2024 Social History Tobacco Use Types Packs/Day Years Used Date Smoking Tobacco: Never Assessed Comments Unknown Sex and Gender Information Value Date Recorded Sex Assigned at Not on file Legal Sex Female 10:12 AM EST Gender Identity Not on file Sexual Orientation Not on file Last Filed Vital Signs Vital Sign Reading Time Taken Comments Blood Pressure 124/68 07/04/2024 4:58 PM EST Pulse 68 07/04/2024 4:58 PM EST Temperature - - Respiratory Rate - - Oxygen Saturation - - Inhaled Oxygen Concentration - - Weight - - Height - - Body Mass Index - - Plan of Treatment Health Maintenance Due Date Last Done Comments Breast Cancer Screening 1950 Pneumococcal Vaccine: 50+ Ye ars (1 of 2 - PCV) 1969 Colorectal Cancer Screening: Annual FOBT 09/19/1999 Colorectal Cancer Screening: Colonoscopy 09/19/1999 Colorectal Cancer Screening: Sigmoidoscopy 09/19/1999 Diabetes: Ophthalmology Exam 08/28/2022 Diabetes: Pedal Pulse Checked 08/28/2022 Diabetes: Sensory Foot Exam 08/28/2022 Diabetes: Visual Foot Exam 08/28/2022 Diabetes: Hemoglobin A1C 05/06/2024 02/04/2024 Influenza Vaccine (#1) 2025 Hepatitis B Vaccine Aged Out No longe r eligible based on patient's age to complete this topic Insurance [facility] Medicare Care Teams Cabinet Finisher Relationship Specialty Start Date End Date Radha Pierson MD [address] [address] PCP - General Internal Medicine 08/18/22
--- OUTSIDE RECORDS SUMMARY | 2025-06-18 08:53 | XMS_ITS | Encounter Summary ---
Author Organization [facility], Address [address] [place] [address] Phone Care Team Providers Care Education Professor Name Role Phone Radha Pierson MD Primary Care Provider [phone] Encounter Details Date Type Department Care Team (Late st Contact Info) Description 08/18/2022 Documentation Only [facility], [address] [place] [phone] Taisha Sky MD [address] [place] [address] Social History Tobacco Use Types Packs/Day Years [...] on filedocumented in this encounter Care Teams Education Professor Relationship Specialty Start Date End Date Radha Pierson MD [address] [facility] [address] [place] [phone] PCP - General Internal Medicine 08/18/22 documented as of this encounter
--- OUTSIDE RECORDS SUMMARY | 2025-06-18 08:53 | XMS_ITS | Encounter Summary ---
Author Organization [facility], Address [address] [place] [address] Phone Care Team Providers Care Friction Welding Machine Operator Name Role Phone Radha Pierson MD Primary Care Provider [phone] Encounter Details Date Type Department Care Team (Late st Contact Info) Description 08/18/2022 Documentation Only [facility], [address] [place] [phone] Taisha Sky MD [address] [place] [address] Social History Tobacco Use Types Packs/Day Years [...] on filedocumented in this encounter Care Teams Friction Welding Machine Operator Relationship Specialty Start Date End Date Radha Pierson MD [address] [facility] [address] [place] [phone] PCP - General Internal Medicine 08/18/22 documented as of this encounter
--- OUTSIDE RECORDS SUMMARY | 2025-06-18 08:53 | XMS_ITS | Encounter Summary ---
Author Organization [facility], Address [address] [place] [address] Phone Care Team Providers Care Marine Engineering Professor Name Role Phone Radha Pierson MD Primary Care Provider [phone] Encounter Details Date Type Department Care Team (Late st Contact Info) Description 02/18/2024 Documentation Only [facility], [address] [place] [phone] Gina [place], [place] [address] [place] [phone] Social History Tobacco Use Types Packs/Day Years [...] on filedocumented in this encounter Care Teams Marine Engineering Professor Relationship Specialty Start Date End Date Radha Pierson MD [address] [phone] PCP - General Internal Medicine 08/18/22 documented as of this encounter
--- OUTSIDE RECORDS SUMMARY | 2025-06-18 08:53 | XMS_ITS | Clinical Summary ---
Author Organization [facility] Address [address] [facility] [address] [place] [phone] Phone Care Team Providers Care Rotary Engraver Name Role Phone Evelyn Bledsoe MD Unavailable [phone] Maile Barry PA-C Unavailable + Radha Pierson MD Primary Care Provider Allergies No known active allergies Medications NOVOLOG U-100 INSULIN ASPART 100 unit/mL injection vial USE 65 UNITS VIA PUMP SUBCUTANEOUSLY DIRECTED SUBCUTANEOUSLY DAILY 90 DAYS 023 Active fluticasone propion-salmeter oL (ADVAIR DISKUS) 250-50 mcg/dose DISKUS Inhale 250 mcg/actuation of fluticasone into the lungs 2 (two) times a day. 023 Active albuterol sulfate (PROAIR HFA INHL) Inhale into the lungs. 023 Active insulin pen needles, disposable, 32 gauge x 5/32 NdleIndications: Type 1 diabetes mellitus with other specified complication 1 each by Miscellaneous route 4 (four) times a day before meals and nightly. Prn insulin pump failure 100 each 2 023 Active ACCU-CHEK GUIDE L1-L2 CTRL JACQUES SolnIndications: Type 1 diabetes mellitus with other specified complication 1 each by Miscellaneous route once as needed. 1 each 1 023 Active glucagon (GVOKE) 1 mg/0.2 mL subcutaneous syringeIndicatio ns:Type 1 diabetes mellitus with other specified complication Inject 0.2 mL (1 mg total) under the skin once as needed (severe hypoglycemia). 0.4 mL 2 024 Active ACCU-CHEK GUIDE ME GLUCOSE [facility]TR [facility] meterIndications :Type 1 diabetes mellitus with other specified complication USE TO TEST BLOOD SUGAR FOUR TIMES DAILY 1 each 024 Active ACCU-CHEK GUIDE TEST STRIPS Strp strips 1 each by Miscellaneous route 4 (four) times a day before meals and nightly. 400 strip 3 024 Active dilTIAZem (CARDIZEM) 30 MG immediate release tablet Take 30 mg by mouth 3 (three) times a day. 024 Active LANTUS SOLOSTAR U-100 INSULIN 100 unit/mL (3 mL) InPn injection penIndications:T ype 1 diabetes mellitus with other specified complication Inject 9 Units under the skin nightly at bedtime. PRN insulin pump failure 15 mL 1 024 Active valsartan (DIOVAN) 40 MG tablet Take 1 tablet by mouth 2 (two) times a day. 025 Active lancing device (ACCU-CHEK SOFTCLIX LANCET DEV [facility] by Miscellaneous route. Active ACCU-CHEK SOFTCLIX LANCETS 1 each by Miscellaneous route 4 (four) times a day. 400 each 3 025 Active Additional Information Patient not taking.Reported on 04/14/2025 hydrALAZINE (APRESOLINE) 10 MG tablet Take 10 mg by mouth 3 (three) times a day. Active hydroCHLOROthiaz mukesh 25 MG tablet Take 25 mg by mouth daily. Active Medication-Free Text 'Allergy Relief' OTC 1 tab QD Active Medication-Free Text Magnesium Citrate 120 mg QD Active zinc sulfate (ZINCATE) 50 mg zinc (220 mg) capsule Take 30 mg by mouth daily. Active Medication-Free Text NAC 900 mg QD Active gabapentin (NEURONTIN) 300 MG capsuleIndicatio ns:Type 1 diabetes mellitus with other specified complication Take 1 capsule (300 mg total) by mouth nightly at bedtime. 90 capsule 1 025 Active SYNTHROID 112 mcg tabletIndication s:Acquired hypothyroidism TAKE 1 TABLET BY MOUTH EVERY DAY 6 DAYS A WEEK AND TAKE 1/2 TABLET 1 DAY A WEEK 90 tablet 1 025 Active HUMALOG U-100 INSULIN 100 unit/mL injection vialIndications: Type 1 diabetes mellitus with other specified complication ADMINISTER 65 UNITS UNDER THE SKIN DAILY THROUGH INSULIN PUMP. 70 mL 1 025 Active HUMALOG U-100 INSULIN 100 unit/mL injection vialIndications: Type 1 diabetes mellitus with other specified complication ADMINISTER 65 UNITS UNDER THE SKIN DAILY THROUGH INSULIN PUMP 70 mL 1 025 2024 Discontinued SYNTHROID 112 mcg tabletIndication s:Acquired hypothyroidism TAKE 1 TABLET BY MOUTH EVERY DAY 6 DAYS A WEEK AND TAKE 1/2 TABLET 1 DAY A WEEK 90 tablet 3 025 2024 Discontinued(R eorder) Active Problems Problem Noted Date Diagnosed Date JIMENEZ (dyspnea on exertion) 01/14/[address] 08/24/2024 Assessment & Plan (04/23/2025 7:40 PM EDT): She is using the medtronic 780 insulin pump and guardian 4 sensor Assessment & Plan (08/24/2024 9:12 PM EST): Using MiniMed 7 80G with CGM Over weight 04/08/2024 Assessment & Plan (04/14/2024 1:31 PM EDT): She has been trying her best to loose the excess weight to improve her health prognosis with the pulmonary hypertension. She has improved her diet further to try and loose weight. She is being as active as she can tolerate to loose weight. She has not had any success. She questions being able to try medication to help her loose weight. Discussed risks and benefits of wegovy. Discussed how it is used. She is comfortable with giving the injection. Will send a prescription to her pharmacy. She will send a message in a couple weeks to let us know how she is tolerating the wegovy and if the dosing needs to be increased Type 1 diabetes mellitus with other specified co mplication 01/15/2023 Overview (01/15/2023): Dx with GDM in 1979. Dx type 1 diabetes in 1981. On insulin pump since 1986. Decreased hypoglycemia awareness Assessment & Plan (04/23/2025 7:42 PM EDT): Control is reasonable based upon the patient's insulin pump and sensor download. No frequent or severe hypoglycemia. She will have an occasional low and will correct and is fine. Will maintain her current pump settings. Continue to work on eating healthy and being active. To call or message with any issues managing her glucose levels. Up to date with ophtho. Labs ordered Assessment & Plan (08/24/2024 9:12 PM EST): Good control by CGM download. Average glucose 124, time in range 88%. About 4% close mostly after exercise. Her basal/bolus ratio is 36% / 64%. Using an insulin to carb ratio 1:15. Sharp decline in blood sugar within 2 to 3 hours after the bolus -Decrease meal bolus by using insulin to carb ratio 1:16. May change this further pending on postprandial response. -Call with blood sugar problem. -Fasting labs soon, call for result -Follow-up in 6 months Assessment & Plan (02/04/2024 9:03 AM EDT): Reasonable control by pump and CGM download. Last A1c 6.6% in 07/2023. Patient has hypoglycemia unawareness. Last severe hypoglycemia needing glucagon in early December. Intermittent use of CGM during the summer because sensor is falling off after few days when swimming. -Same pump settings for now. -Try to use sensor as much as possible. -Labs today. -Call if blood sugar below 70 or over 250 repeatedly. -Reviewed symptoms, prevention and treatment of hypoglycemia. -Patient aware that LDL was over target. She reports elevated LFTs years ago when tried on cholesterol-lowering medications. She is not interested in cholesterol testing nor would try any type of cholesterol-lowering medication. -Up-to-date with eye exam, requested to send report here. Assessment & Plan (01/15/2023 6:10 PM EDT): Patient with type 1 diabetes diagnosed in 1981. She is on insulin pump since 1986. Only complication is hypoglycemia unawareness. She has been using MiniMed 770 G pump with CGM, download reviewed. Control is quite good. No severe hypoglycemia for over 6 months. Recent A1c is not available, ordered. Patient is interested in upgrading to the 780 G with new CGM, [facility]. Current pump settings. We reviewed symptoms, prevention and treatment of hypoglycemia. Encouraged to call if problems with blood sugars. Will have fasting labs soon. Up-to-date with eye exam, no diabetic retinopathy. Acquired hypothyroidism 01/15/2023 Assessment & Plan (04/23/2025 7:40 PM EDT): Will check levels to determine if medication adjustments are needed Assessment & Plan (08/19/2024 9:03 AM EST): Clinically euthyroid. Was slightly over replaced on Synthroid 112 mcg daily with low TSH of 0.14 in January 2024. Dose was decreased to 6.5 tablets/week -Added TSH to next labs. -Call for results Assessment & Plan (02/04/2024 9:04 AM EDT): Was slightly under replaced while taking Synthroid 112 mcg 6 tablets/week a year ago. Dose was increased to 7 tablets/week and follow-up TSH in 07/2023 was normal. Clinically euthyroid. Will check TSH and adjust dose as needed. Reviewed symptoms of under and over replacement, patient to call if concern. Assessment & Plan (01/15/2023 6:11 PM EDT): Hypothyroidism treated since 2001. She is clinically euthyroid. Gained 6 pounds within the last few months because of decreased physical activity related to SI joint pain. Plan to repeat TSH soon and adjust dose as needed. Reviewed symptoms of under and over replacement, patient to call if concerned. Encounters Date Type Department Care Team Description 05/31/2025 Refill [facility] [address] [place] [address] [place] [address] Maile Barry PA-C Medication Refill 05/28/2025 Refill [facility] [address] [place] [address] Rosa Garza [place] Medication Refill (Synthroid) 04/14/2025 8:20 AM EDT Office Visit [facility] [address] [place] [address] Maile Barry PA-C Type 1 diabetes mellitus with other specified complication (Primary Dx); Insulin pump in place; Acquired hypothyroidism from Last 3 Months Social History Tobacco Use Types Packs/Day Years Used Date Smoking Tobacco: Never Smokeless Tobacco: Never Tobacco Cessation:Counseling Given: Not Answered Alcohol Use Standard Drinks/Week Comments Never 0 (1 standard drink = 0.6 oz pur e alcohol) Education Answer Date Recorded Are you interested in more education? Not on dorian e 11/10/2022 Are you concerned about learning? Not on file 11/10/2022 No 11/10/2022 No 11/10/2022 Digital Access Answer Date Recorded No 12/10/2022 No 12/10/2022 Reliable internet access at home? Not on file 12/10/2022 Device with a working camera? Not on file Comments Unknown Sex and Gender Information Value Date Recorded Sex Assigned at Not on file Legal Sex Female 1:31 PM EDT Gender Identity Not on file Sexual Orientation Not on file Last Filed Vital Signs Vital Sign Reading Time Taken Comments Blood Pressure 138/78 04/14/2025 8:26 AM EDT Pulse 68 04/14/2025 8:26 AM EDT Temperature 35.6 C (96.1 F) 01/14/2025 10:18 AM EDT Respiratory Rate 16 01/14/2025 10:18 AM EDT Oxygen Saturation 99% 04/14/2025 8:26 AM EDT Inhaled Oxygen Concentration - - Weight 62.7 kg (138 lb 3.2 oz) 04/14/2025 8:26 A M EDT Height 150.3 cm (4' 11.17 ) 04/14/2025 8:26 AM E DT Body Mass Index 27.75 04/14/2025 8:26 AM EDT Plan of Treatment Upcoming Encounters Date Type Department Care Team (Late st Contact Info) Description 07/28/2025 9:20 AM EST Office Visit [facility] [address] [place] [address] Maile Barry PA-C [address] [place] [address] 12/28/2025 9:20 AM EDT Office Visit [facility] [address] [place] [address] [place] [address] Evelyn Bledsoe MD [address] [place] [phone] [email or web address] Maintenance Due Date Last Done Comments DEPRESSION SCREENING 1962 HEPATITIS C SCREENING 1968 PNEUMOCOCCAL VACCINES (50+ years) (1 of 2 - PCV) 1969 COLOGUARD 09/19/1995 COLONOSCOPY 09/19/1995 COLORECTAL CANCER SCREENING 09/19/1995 FIT TEST 09/19/1995 FOBT 09/19/1995 SIGMOIDOSCOPY 09/19/1995 VIRTUAL COLONOSCOPY 09/19/1995 RSV VACCINE (1 - Risk 50-74 years 1-dose series) 2000 OSTEOPOROSIS SCREENING INITIAL (ONE-TIME) 09/19/2015 DIABETIC EYE EXAM 01/15/2023 LIPID PANEL 02/06/2024 02/05/2023, 02/05/2023 HEMOGLOBIN A1C 08/06/2024 02/04/2024, 01/14, 08/01/2023, Additional history exists POTASSIUM LEVEL 02/03/2025 02/04/2024, 02/05/2023 INFLUENZA VACCINE (#1) 2025 , 07/01/2021, 04/10/2021, Additional history exists COVID-19 VACCINE (2024- season) 2025 05/28/2022, 04/10/2021, 09/15/2020, Additional history exists CREATININE LEVEL 09/04/2025 09/04/2024, , 02/05/2023 TSH LEVEL 09/04/2025 09/04/2024, 01/14, 08/01/2023, Additional history exists BLOOD PRESSURE 10/12/2025 04/14/2025 MAMMOGRAM 01/19/2027 01/19/2025, 01/19/2025 Adult Td,Tdap Booster 09/02/2032 09/02/2022 ZOSTER VACCINES Completed 10/15/2020, 04/24/2020 SMOKING STATUS SCREENING (Once After 26 Yrs) Completed 04/14/2025 HEPATITIS A VACCINES Aged Out No long er eligible based on patient's age to complete this topic HIB VACCINES Aged Out No longer eligi ble based on patient's age to complete this topic MENINGOCOCCAL VACCINES (ACWY) Aged Out No longer eligible based on patient's age to complete this topic MENINGOCOCCAL VACCINES (B) Aged Out N o longer eligible based on patient's age to complete this topic Medical Devices Not on file Procedures Procedure Name Priority Date/Time Associated Diagnosis Comments COMPREHENSIVE METABOLIC PANEL (CMP) Routine 09/04/2024 3:59 PM EST Type 1 diabetes mellitus with other specified complication TSH WITH REFLEX Routine 09/04/2024 3:58 PM EST Acquired hypothyroidism HEMOGLOBIN A1C Routine 02/04/2024 9:01 AM EDT Type 1 diabetes mellitus with other specified complication COMPREHENSIVE METABOLIC PANEL (CMP) Routine 02/04/2024 9:01 AM EDT Type 1 diabetes mellitus with other specified complication LIPID PANEL Routine 02/05/2023 8:10 AM EDT Type 1 diabetes mellitus with other specified complication from Last 3 Months or Most Recently Relevant to Health Maintenance Results * Comprehensive metabolic panel (09/04/2024 3:59 PM EST) Only the most recent of2 resultswithin the time period is included. Blood us Evelyn Bledsoe MD LAB BLOOD BKR ORDERABLES Final Result Performing Organization Address City/[facility]/ZIP Co de Phone Number [address] [phone] * TSH with reflex (09/04/2024 3:58 PM EST) Blood Evelyn Bledsoe MD LAB BLOOD BKR ORDERABLES Final Result Performing Organization Address City/[facility]/ZIP Co de Phone Number [address] [phone] * (ABNORMAL) Hemoglobin A1c (02/04/2024 9:01 AM EDT) HEMOGLOBIN A1C 6.6(H) 4.3 - 5.8 % [facility] Blood 02/04/2024 9:01 AM EDT 02/04/2024 9:06 AM EDT Evelyn Bledsoe MD LAB BLOOD BKR ORDERABLES Final Result Performing Organization Address City/[facility]/ZIP Co de Phone Number [address] [address] * (ABNORMAL) Lipid panel (02/05/2023 8:10 AM EDT) HDL 110 mg/dL [facility] Comment: Interpretation <40 mg/dL: Low HDL cholesterol (major risk factor for CHD) Greater than or equal to 60 mg/dL: High HDL cholesterol ( negative risk factor for CHD) HDL - cholesterol is affected by a number of factors, e.g. smoking, excerise, hormones, sex and age. CHOLESTEROL 279(H) 0 - 240 mg/dL [facility] TRIGLYCERIDES 60 30 - 160 mg/dL [facility] LDL 157(H) 50 - 129 mg/dL [facility] Comment: LDL levels in terms of risk for coronary heart disease: <100 mg/dL: Optimal 100-129 mg/dL: Near or above optimal 130-159 mg/dL: Borderline high 160-189 mg/dL: High >190 mg/dL: Very High CARDIAC RISK RATIO 2.5(L) 3.3 - 4.4 C [facility] Blood 02/05/2023 8:10 AM EDT 02/05/2023 8:13 AM EDT us Evelyn Bledsoe MD LAB BLOOD BKR ORDERABLES Final Result Performing Organization Address City/[facility]/ZIP Co de Phone Number [address] [address] from Last 3 Months or Most Recently Relevant to Health Maintenance Insurance [address] [address] MEDICARE REPLACEMENT [facility]AC[place] [facility] REPLACEMENT [facility] Member Subscriber Plan / Payer (Ef fective 2022-) Name:Flor Retana Relation to Subscriber:Self Name:Flor Retana Payer ID:[id number] (NAIC) Type:Medicare Address: [place] [id number] Care Teams Rotary Engraver Relationship Specialty Start Date End Date Radha Pierson MD [address] [facility] [address] [place] [phone] PCP - General Internal Medicine 01/15/23 Evelyn Bledsoe MD [address] [address] Endocrinology 12/27/22 Maile Barry PA-C [address] [place] [address] Physician Paratransit Operator 12/27/22 Additional Source Comments The information contained in this document represents components of the legal health record. It is not the complete legal health record.[facility]
== END ==
LOC: HO.SL 08:21
PROVIDERS: PCP Internal Medicine; Visit Provider Hospitalist
DX: G47.33 Obstructive sleep apnea (adult) (pediatric) (principal)
CPT/HCPCS: 95806

== ENCOUNTER → 2025-06-18 08:46 | Outpatient (BNV) | payer MEDICARE, SELFPAY | PROVIDERS: PCP Internal Medicine; Visit Provider Psychiatry & Neurology Neurology | DX: R06.83 Snoring (principal) | CPT/HCPCS: 95806 ==

== ENCOUNTER 2025-06-29 14:23 | Outpatient (AMB) | payer MEDICARE, SELFPAY ==
--- OUTSIDE RECORDS SUMMARY | 2025-06-23 09:35 | XMS_ITS | Encounter Summary ---
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 Role Phone Radha Pierson MD Primary Care Provider [phone] Reason for Referral * Imaging (Routine) - Pending Review Specialty Diagnoses / Procedures Referred By Contac t Referred To Contact Radiology Diagnoses Hemangioma, unspecified site Procedures MR Abdomen wo and w Contrast Radha Pierson MD [address] [place] [address] Phone: tel: fax: [address] [phone] Phone: tel: Referral ID Status Reason Start Date Expiration Date V isits Requested Visits Authorized [id number] Pending Review 05/26/2025 05/26/2026 1 1 Reason for Visit * Imaging (Routine) - Pending Review Specialty Diagnoses / Procedures Referred By Contac t Referred To Contact Radiology Diagnoses Hemangioma, unspecified site Procedures MR Abdomen wo and w Contrast Radha Pierson MD [address] [place] [address] Phone: tel: fax: [address] [phone] Phone: tel: Referral ID Status Reason Start Date Expiration Date V isits Requested Visits Authorized [id number] Pending Review 05/26/2025 05/26/2026 1 1 Encounter Details Date Type Department Care Team (Latest Contact Info) Description 06/23/2025 9:35 AM EST - 06/23/2025 11:59 PM [facility] Hospital Encounter [facility] MRI [address] [place] [id number] Hemangioma, unspecified site Discharge Disposition: Home or Self Care Social History Tobacco Use Types Packs/Day Years Used Date Smoking Tobacco: Never Smokeless Tobacco: Never Alcohol Use Standard Drinks/Week Comments No 0 (1 standard drink = 0.6 oz pur e alcohol) Housing Instability Answer Date Recorde d Are you worried that in the next 2 months you may not have stable housing? No 05/29/2024 Food Access & Nutrition Answer Date Rec orded Do you have access to a vari ety of food including fruits and vegetables? Yes 05/29/2024 Health Literacy Answer Date Recorded How often do you need to hav e someone help you when you read instructions, pamphlets, or other written material from your doctor or pharmacy? Never 05/29/2024 Caregiver: How often do you need to have someone help you when you read instructions, pamphlets, or other written material from your doctor or pharmacy? Not on file 05/29/2024 Financial Risk Answer Date Recorded How hard is it for you to pa y for the very basics like food, housing, medical care, and air conditioning / heating? Not very hard 05/29/2024 Transportation Answer Date Recorded Has the lack of transportati on kept you from meetings, work, or from getting things needed for daily living? No Has the lack of transportati on kept you from medical appointments or from getting medications? No 05/29/2024 Social Isolation Answer Date Recorded How often do you feel lonely or isolated from th ose around you? Never 05/29/2024 Food Risk Answer Date Recorded Within the past 12 months we worried whether our food would run out before we got money to buy more. Never true 05/29/2024 Within the past 12 months th e food we bought just didn't last and we didn't have money to get more. Never true 05/29/2024 Dependent Care Answer Date Recorded Do you need help finding or paying for care for your loved ones. For example, early childhood specialist or elderly care for an older adult? No 05/29/2024 Education Answer Date Recorded Do you think completing more education or training, like finishing a GED, going to college, or learning a trade, would be helpful for you? No 05/29/2024 Employment and Income Answer Date Recor ded During the last four weeks, have you been actively looking for work? No 05/29/2024 Living Situation Answer Date Recorded What is your living situation? Unrecognized valu e 05/29/2024 Comments No Sex and Gender Information Value Date Recorded Sex Assigned at Female 12/09/2024 12:04 PM EDT Legal Sex Female 3:15 AM EST Gender Identity Female 12/09/2024 12:04 PM EDT Sexual Orientation Straight 12/09/2024 12 :04 PM EDT documented as of this encounter Medications at Time of Discharge carboxymethylcel lulos/glycerin (REFRESH OPTIVE OPHT) apply to the eye at bedtime as needed. dilTIAZem (CARDIZEM) 30 mg immediate release tablet Take 1 tablet (30 mg total) by mouth 3 (three) times a day. enalapril (VASOTEC) 20 mg tablet Take 1 tablet (20 mg total) by mouth 2 (two) times a day. hydrALAZINE (APRESOLINE) 10 mg tablet Take 1 tablet (10 mg total) by mouth 3 (three) times a day. hydroCHLOROthiaz mukesh (HYDRODIURIL) 25 mg tablet TAKE 1 TABLET(25 MG) BY MOUTH 1 TIME EACH DAY 90 tablet 2 02/23/2025 [place]ULIN PUMP [place] [facility] [place]fusion Pump (INSULIN PUMP [id number]) Kit by Does not apply route. From [facility] endocrine-- Dr.Eva Kwon 09/13/2020 levothyroxine (SYNTHROID, LEVOTHROID) 112 mcg tablet Take 125 mcg by mouth daily. 6 days a week/ 75mcgt one day a week magnesium oxide (MAG-OX) 400 mg magnesium tablet Take 1 tablet (400 mg total) by mouth 1 (one) time each day. methocarbamoL (ROBAXIN) 500 mg tablet Take 1 tablet (500 mg total) by mouth 2 (two) times a day if needed for muscle spasms. 10 tablet 05/26/2025 ZINC ORAL Take by mouth daily. celecoxib (CeleBREX) 100 mg capsule Take 1 capsule (100 mg total) by mouth 2 (two) times a day. 60 each 05/25/2025 5 lidocaine 4 % patch Apply 1 patch topically 1 (one) time each day. 30 each 05/25/2025 documented as of this encounter Discharge Disposition Disposition Code Departure Means Destination Home or Self Care documented in this encounter Plan of Treatment Upcoming Encounters Date Type Department Care Team (Late st Contact Info) Description 10/08/2025 1:00 PM EDT Office Visit Internal Medicine - [address] [place] [address] Radha Pierson MD [address] [place] [phone] documented as of this encounter Procedures Procedure Name Priority Date/Time Associated Diagnosis Comments MR ABDOMEN WO AND W CONTRAST Routine 06/23/2025 10:54 AM EST Hemangioma, unspecified site documented in this encounter Results * MR Abdomen wo and w Contrast (06/23/2025 10:54 AM EST) Anatomical Region Laterality Modality Body Magnetic Resonan ce 06/29/2025 11:1 1 AM EST Impressions 06/29/2025 11:22 AM EST 1. 3.4 cm hemangioma in the right hepatic lobe. 2. No acute findings. -------- FINAL REPORT -------- Dictated By: Armando Lovell Dictated Date: 06/29/2025 11:11 ET Assigned Physician: Armando Lovell Reviewed and Electronically Signed By: Armando Lovell Signed Date: 06/29/2025 11:22 ET Workstation ID: [id number] Transcribed By: Self Edit Transcribed Date: 06/29/2025 11:14 ET Narrative 06/29/2025 11:22 AM EST PROCEDURE: MRI of the abdomen with intravenous contrast. HISTORY: liver hemangioma. TECHNIQUE: Multiplanar multisequence MRI of the abdomen with and without intravenous contrast. IV contrast dose: 12 mL intravenous Dotarem from a 15 mL vial with 3 mL discarded. COMPARISON: 05/25/2025. FINDINGS: LOWER THORAX: Normal. LIVER: Lobulated T2 hyperintense lesion in the inferolateral right lobe measuring up to 3.4 cm. This lesion demonstrates the early peripheral enhancement and progressive central filling typical of a hemangioma. Scattered very small cysts. No evidence of steatosis on out of phase imaging. The portal and hepatic veins are patent. BILIARY: Normal gallbladder. Normal caliber biliary tree. No ductal dilatation or filling defect. PANCREAS: No focal lesion. No ductal dilatation. SPLEEN: Normal. ADRENAL GLANDS: Normal. KIDNEYS: Very small interpolar cortical cyst on the right. Visible portions of the collecting systems are normal. RETROPERITONEUM: No mass or lymphadenopathy. VASCULATURE: No aneurysm. BOWEL/MESENTERY: Visible portions are normal. ABDOMINAL WALL: Small fat-containing paraumbilical hernia. BONES: Degenerative changes of the spine, with and apparent severe spinal stenosis at L4-5. Mild S-shaped thoracolumbar scoliosis No visible bony lesion. Procedure Note Armando Lovell MD - 06/29/2025 PROCEDURE: MRI of the abdomen with intravenous contrast. HISTORY: liver hemangioma. TECHNIQUE: Multiplanar multisequence MRI of the abdomen with and withoutintravenous contrast. IV contrast dose: 12 mL intravenous Dotarem from a 15 mL vial with 3 mLdiscarded. COMPARISON: 05/25/2025. FINDINGS: LOWER THORAX: Normal. LIVER: Lobulated T2 hyperintense lesion in the inferolateral right lobemeasuring up to 3.4 cm. This lesion demonstrates the early peripheralenhancement and progressive central filling typical of a hemangioma.Scattered very small cysts. No evidence of steatosis on out of phaseimaging. The portal and hepatic veins are patent. BILIARY: Normal gallbladder. Normal caliber biliary tree. No ductaldilatation or filling defect. PANCREAS: No focal lesion. No ductal dilatation. SPLEEN: Normal. ADRENAL GLANDS: Normal. KIDNEYS: Very small interpolar cortical cyst on the right. Visibleportions of the collecting systems are normal. RETROPERITONEUM: No mass or lymphadenopathy. VASCULATURE: No aneurysm. BOWEL/MESENTERY: Visible portions are normal. ABDOMINAL WALL: Small fat-containing paraumbilical hernia. BONES: Degenerative changes of the spine, with and apparent severe spinalstenosis at L4-5. Mild S-shaped thoracolumbar scoliosis No visible bonylesion. IMPRESSION: 1. 3.4 cm hemangioma in the right hepatic lobe. 2. No acute findings. -------- FINAL REPORT -------- Dictated By: Armando Lovell Dictated Date: 06/29/2025 11:11 ET Assigned Physician: Armando Lovell Reviewed and Electronically Signed By: Armando Lovell Signed Date: 06/29/2025 11:22 ET Workstation ID: [id number] Transcribed By: Self Edit Transcribed Date: 06/29/2025 11:14 ET Radha Pierson MD IMG MRI PROCEDURES Final Resul t documented in this encounter Visit Diagnoses Diagnosis Hemangioma, unspecified site documented in this encounter Administered Medications Inactive Administered Medications - up to 3 most recent administrations Medication Order MAR Action Action Date Dose Rate Site gadoterate meglumine (CLARISCAN, DOTAREM) injection 12 mL 12 mL, intravenous, Once in imaging, Starting on 06/23/25 at 1053, For 1 dose Given 06/23/2025 10:54 AM EST 12 mL Right Antecubital documented in this encounter Orders Medications Ordered That Marco ht Not Have Been Administered Count Last Ordered Date First Ordered Date gadoterate meglumine (GIOVANI CAN, DOTAREM) injection 12 mL 1 06/23/2025 documented in this encounter Additional Health Concerns Assessment Noted Time PHQ-9 Depression Total Score: 0 05/30/20 24 9:44 PM EST A fall risk assessment has been complete d for the patient 05/30/2024 9:38 PM EST documented as of this encounter Care Teams 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
[2025-06-29 14:40] VITALS: BP 118/62; PULSE 78; O2SAT 98; BMI 25.6
--- NOTE | 2025-06-29 14:40 | A.OFFVIS_ITS ---
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 She had noticed increased dyspnea on exertion limiting her ability of exerting herself. She did demonstrated evidence of obstructive airway disease on her pulmonary function studies. Therefore she was treated for asthma with multiple inhalers of different classifications without any significant improvement. Therefore, we start her on nebulized therapy also without any significant improvement in her symptoms. We did review her x-ray demonstrating flattening of the diaphragms and hyperinflation. We also repeat her blood work. However, she did not respond to the inhaled therapy. This brings up the question evaluating for now Rima of diagnosis to explain her dyspnea. I explained to her that a CT scan of the chest would be helpful to better address her persistent symptoms. in addition to that she is concerned about systemic cortical steroids in view of her diabetes. This point the patient will return to using her Symbicort at least once a day. And she also has a short-acting beta agonist that she can use as needed. We did talk about the importance of warming up specially when she is going to start exercising to minimize exercise- induced bronchospasms. We also talked about pursed lip breathing to improve her respiratory capacity by increasing her intrinsic peep. 03/04/2021 the patient is here for a pulmonary follow-up visit. Since we last spoke she told me that she was having significant respiratory symptoms with chest congestion and cough for several weeks. She had been using her Ventolin HFA inhaler which appears to be the most effective 1 for her in the only 1 that gives her some relief. She did have evaluations by primary care doctor although she did not want to go to urgent care or the ER because she did not want to be expose to anybody who was sick. The patient did have an episode where her breathing became so significant she thought she was going to . she did improve and her respiratory symptoms have now back to baseline and she is back to using the Ventolin HFA. She is not using any of the other inhalers that will try in addition to that she has been having significant daytime drowsiness and also having a sense of throat swelling. She thought it could be 1 of her blood pressure medications so therefore she stopped all of them this includes the combination of valsartan and hydrochlorothiazide as well as amlodipine. When she stops the medication the sense of the PT drowsiness in the throat swelling sensation improved. However her blood pressure was elevated and she did go back to the valsartan hydrochlorothiazide combination. She has since that she has been doing back on an that the throat swelling sensation has returned. Therefore, she is going to talk to her primary care doctor about potentially switching her medications possibly the combination therapy to figure out which medication is potentially bother her since her symptoms improved once she stops the medication. She is not sure if she had COVID during the time that she was ill although she was tested for COVID a couple times and she was negative. Today before she leaves the hospital will have her get blood work including a COVID-19 antibody checked to see if there was any evidence of any exposure to COVID and her serology. 08/30/2021 the patient is here for a pulmonary follow-up visit. Overall she is doing better from a respiratory status. She has been exercising regularly in her cough is improved. Her chest congestion also has improved. She does use her Wixela daily and also uses her short-acting beta agonist prior to exercise. In the meantime she did follow-up with cardiology. She has had issues with elevated blood pressures and also carries other cardiovascular risk factors in addition to a positive family history of early heart disease. The patient did have an EKG and she did bring it in demonstrating some septal wall abnormalities. 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 Therefore, she will talk to her ultrasonographer regarding a stress test. In the meantime she complains about the nasal congestion. Sooner for works wonders for her. However now with her blood pressure she needs to be very careful with Sudafed as again increased blood pressure and increase her heart rate. Therefore we talked about alternatives including Atrovent nasal spray. She can use any conjunction with her nasocort. 08/08/2022 the patient is here for a pulmonary follow-up visit. She continues to have significant dyspnea on exertion. Even with minimal activity. Recently she went skiing with her grandchildren had a very hard time with shortness of breath to feels that the shortness of breath is getting worse. She did follow- up with cardiology in has been dealing with elevations in her blood pressure. As far as the pulmonary evaluation she has been on multiple inhalers without any significant improvement of her symptoms. She has not had pulmonary function studies in some time however. She also has not had any imaging studies either. During that visit we did go for 6 minutes walk test willing upstairs. Once we get to 3 flights of stairs heart rate went up to 135 and the patient was visibly dyspneic with dyspnea score 10/10. She rested. She denied any chest pain or pressure during that ambulation. once the patient's heart rate went over 101 she became symptomatic with some mild dyspnea. Again, once the heart rate decreased to below 100 her symptoms of dyspnea improved. She is closely working with Cardiology. the patient is wondering about a diagnosis of pulmonary hypertension. I do believe that a cardiopulmonary exercise study may be helpful at this point to assess for etiologies of her underlying dyspnea. In anyway she was having significant dyspnea and elevations in the heart rate. Therefore, blood work will be also important to make sure she is not anemic and also checking a D-dimer to rule out the possibility of chronic thromboembolic disease. If her D-dimer is elevated then a CTA or a V/Q scan or both will be helpful in further addressing her symptoms. 08/20/2023 the patient is here for a pulmonary follow-up visit. She continues to struggle with the same symptoms. Appears to have worsening dyspnea on exertion. She states that even going from the mailbox her house she has a stop once. The patient was a very avid hiker. She even climb [employer]. The patient is struggling at this point because of significant dyspnea. We had eval uated her in the past and she did develop significant tachycardia with any activity. She has been following closely with Cardiology though still not clear. She will benefit from additional testing and therefore I will request a cardiopulmonary exercise tolerance test at [facility] to further address the physiology behind her significant dyspnea symptoms. She has been on respiratory therapy. She definitely has asthma with small airways disease that is being treated with medication. Still no significant improvement of the dyspnea symptoms. The patient has not had a chest x-ray in a couple years therefore will go ahead and repeat 1 at this time. will plan to follow-up in 4- 6 months but will discuss her findings and the CPAP once available. If the patient has any worsening issues or any other concerning issues she will call for an earlier assessment. 11/06/2023 the patient is here for pulmonary follow-up visit. She continues to complain of dyspnea on exertion. Seems to be getting worse. We did review her pulmonary function studies. Appears to have a component of small airways disease consistent with asthma current the patient has been on Wixela but no significant improvement. Will provide her with Symbicort with hopes that she can use it specially in the morning which she is mostly active. She did undergo a cardiopulmonary exercise tolerance test. During the study she did have a respiratory limitation. She was obstructive indeed. Therefore the inhaler should help some. In addition to that as she exercise she developed worsening V/Q mismatch increasing space suggesting pulmonary vascular disease. Patient likely has exercise-induced pulmonary hypertension. We did talk about any level 3 CPAP although that is very invasive. Will try to request a exercise echo and see if we can measure pulmonary pressures with exercise. We consider vasodilators therapy if indicated. 02/19/2024 the patient is here for a pulmonary follow-up visit. She continues to be about the same still complaining of dyspnea on exertion. Although she did go away to [place] and she did a lot better with the air quality there. When she came back to the [place] she had a hard time. The patient did undergo a stress echo which I did review with her. It appeared that she did not have any ischemic changes which is reassuring. 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 The patient is already on blood pressure medications for elevated blood pressure which is helpful for the diastolic dysfunction. She will need a rate controlling agent to allow her heart rate slowed down enough for her to be able to relax her left ventricle. She has tried beta-blockers in the past him with her asthma good idea. I will give her a prescription for small dose of diltiazem that she can take 4 times a day. The patient will watch closely for any adverse effects. She can also check her blood pressure and heart rate while taking the medication. If she has any issues she will call the office. She will be following up with Nephrology soon which will be helpful to adjust her blood pressure medications. She does continue the Symbicort. I did suggest that she continues use it 1 puff twice a day. Then when she is stable on the diltiazem she can try to decrease it to as needed. 05/23/2024 the patient is here for a pulmonary follow-up visit. The patient overall is doing about the same. Still having dyspnea on exertion. She did take the diltiazem but no significant improvement. She continues on the Symbicort although no significant improvement either. She has did follow-up with Cardiology no other recommendations were provided. Otherwise patient is doing okay. We did review her CPAP. My recommendation is for her to keep her heart rate no more than 75% of her maximum for her age. Her maximum heart rate will be 140 beats per minute and therefore she should keep a heart rate around 110 115 with activity. More than that will going to cause additional stress to the body increased anaerobic activity. Once the patient develops an elevated heart rate then can develop worsening diastolic cardiac function. Otherwise patient is without other complaints no imaging studies at this time. Will follow-up in the summer of 2024. If any issues arise she will call for an earlier assessment. 01/26/2025 the patient is here for pulmonary follow-up visit. She continues have significant shortness of breath with activity. She did follow-up in [place] and had a further evaluation for pulmonary hypertension. It is felt that based on all the studies she does not have evidence of pulmonary hypertension. Although the possibility of underlying cardiac disease is there. She is going to undergo additional cardiac testing at this time. In the meantime she stopped all her the inhalers. Her asthma appears to be stable. Will have her get spirometry today. Based on the spirometry she still has a mild obstruction and significant small airways disease consistent with her asthma history. Will go ahead and send her Symbicort back that she can use as needed. She should also try Singulair. In the meantime she is going to wait for her cardiac workup. She is going to continue with the workup in [place] and will follow-up in 4-6 months. If she has any issues prior to this she will call for an earlier assessment. 06/29/2025 the patient is here for pulmonary follow-up visit. The patient overall has been doing okay. She did follow-up with cardiology and had additional blood pressure medication changes as it is still an issue. In addition to that she does complaint of daytime drowsiness. Rowdy score is elevated 11/24. She typically needs to take a nap during the day. The patient did undergo a home sleep study. It demonstrated AHI of 3. At this point was a limited study and was nondiagnostic. The patient continues to have significant daytime drowsiness. She also has increased cardiovascular risk factors. Therefore will go ahead and request an in-lab sleep study this time. She continues use her respiratory medications with partial response. She will continue to use it for now. The patient will follow-up with Cardiology for further recommendations regarding her cardiovascular double product. He will follow-up after the sleep study and around 3-4 months. If any issues arise she can always call for further recommendations. 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 Pulmonary hypertension Tachycardia Dyspnea Chronic allergic rhinitis Throat discomfort Chest pain Asthma Dyspnea and respiratory abnormalities Family History (Updated 04/26/20 @ 22:15 by Lalito Alvarez MD) Other Asthma Social History Patient Tobacco Use Status: Never used Tobacco Review of Systems Const Reports daytime sleepiness, Reports fatigue, Reports headache(s) and Denies night sweats Eyes Denies change in vision ENT Denies change in voice, Reports headache(s), Denies lip swelling, Denies mouth pain, Reports nasal congestion, Reports nasal discharge, Reports post nasal drip and Denies tongue swelling Card Denies chest pain and Reports dyspnea on exertion Resp Reports cough and Reports dyspnea on exertion GI Denies abdominal pain Musc Denies no additional complaints Neuro Denies Neuro-related abnormal movements and Reports headache(s) Psych Denies no additional complaints Endo Reports fatigue Robert/Lymph Denies easy bleeding and Denies lymphadenopathy Aller/Immun Denies lip swelling and Denies tongue swelling Physical Exam Vital Signs: BMI result Body Mass Index 25.6 Const General: alert HEENT General nose exam: Nasal discharge present Mouth: Normal oral and palatal mucosa present, oropharynx normal and moist mucous membranes Throat: Yes postnasal drainage and No uvular edema Eyes Pupils: Equal, round and reactive pupils present Neck Neck: Yes normal visual inspection, Yes full ROM and Yes no lymphadenopathy Chest Chest palpation & inspection: normal inspection of the chest Resp Auscultation: clear to auscultation bilaterally, no rales, no rhonchi and no wheezes Cardio Rate: regular rate Rhythm: regular rhythm Heart sounds: S1 normal heart sound present and S2 normal heart sound present GI Palpation (GI): Soft to palpation and nontender Auscultation: normal bowel sounds General: Yes no CVA tenderness Back/Spine/Pelvis Back: no CVA tenderness Skin General skin exam: rashes and/or lesions noted Neuro Cranial nerves: Yes Equal, round and reactive pupils present Assessment & Plan Assessment & Plan (1) Dyspnea: Code(s): R06.00 - Dyspnea, unspecified Category: Medical Qualifiers: Dyspnea type: dyspnea on exertion Qualified Code(s): R06.09 - Other forms of dyspnea (2) Asthma: Code(s): J45.909 - Unspecified asthma, uncomplicated Category: Medical Qualifiers: Asthma complication type: uncomplicated Asthma persistence: persistent Asthma severity: moderate Qualified Code(s): J45.40 - Moderate persistent asthma, uncomplicated (3) Chronic allergic rhinitis: Code(s): J30.9 - Allergic rhinitis, unspecified Category: Medical (4) Tachycardia: Code(s): R00.0 - Tachycardia, unspecified Category: Medical (5) 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: Comment: stress induced Code(s): I51.89 - Other ill-defined heart diseases Category: Medical (6) EMILIANA (obstructive sleep apnea): Code(s): G47.33 - Obstructive sleep apnea (adult) (pediatric) Category: Medical Plan continue symbicort continue her exercise program, to keep pulse no more than 75% of maximum HR cardiac workup home PSG non diagnostic, requesting in lab PSG F/U 4 months Orders: Orders RT PSG in-lab sleep study Today G47.33 - Obstructive sleep apnea (adult) (pediatric) Coding Level of Care Code Est Pt Level 4 (56230) Diagnoses Dyspnea on exertion R06.09 Dyspnea type: dyspnea on exertion Moderate persistent asthma without complication J45.40 Asthma complication type: uncomplicated Asthma persistence: persistent Asthma severity: moderate Chronic allergic rhinitis J30.9 Tachycardia R00.0 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 I51.89 EMILIANA (obstructive sleep apnea) G47.33 Time Spent (min) 18
--- OUTSIDE RECORDS SUMMARY | 2025-06-29 20:45 | XMS_ITS | Data Portability ---
Author Organization [place] - [facility] in [facility],, LATISHA SAUNDERS MD Address [address] [facility] [address] [place] [address] Care Team Providers Care Electrical Controls Assembler Name Role Phone BRITT HENRIQUEZ Primary Care Provider Assessment No assessment recorded. Plan of Treatment Reminders Order Date Submit Date Provider Last Modified By Organization Details Last Modified Time Details Appointments None recorded. Lab pap test, thinprep, cervical [address] [facility], Cytopathology Service, [address] [place], [address], 5 11:11:36 fecal occult blood, stool 2014 015 [email or web address] n1 In-Office Order, Internal Use Only DO Not Attach Compendium DO Not Attach Compendium, Do Not Delete/merge, [id number] 5 11:01:42 Referral None recorded. Procedures None recorded. Surgeries None recorded. Imaging MAMMO, screening, digital, bilateral 2014 015 [email or web address] [facility] [address] [place], [address], 5 16:19:41 Medication Orders None recorded. Patient TargetsNo targets recorded. Patient Instructions Encounter Date Encounter Id Patient Instructions Last Modified By Organization Details Last Modified Time 04/22/2015 [id number] She is here as a new patient [...] DO Not Attach Compendium, Do Not Delete/merge, [id number] 04/22/2015 14:52:45 04/22/20 15 04/22/2015 pap, LB [email or web address] ThinP rep Pap, Image d: NEGAT JOHANNA [...] at the above addre ss. Not Available [facility], Cytopathology Service [address] [place], [address], 04/29/2015 11:11:36 04/23/20 15 03/31/2013 MAMMO , josee tabitha, digit al, bilat eral No observ ation record ed. [facility] ([facility]) [address] [place], [address], 04/23/2015 08:31:30 Result Notes None recorded. Problems Name Problem SNOMED Code Status Onset Date Resolution Date Notes Provider Name and Address Organization Details Recorded Time Cystocele 158521580 Active third degree with Valsalva, first without, only first degree uterine prolapse. Latisha Saunders MD [address], [place], [phone], [facility] - [facility] in [facility], 17:06:22 Insulin treated type 2 diabetes mellitus 051944459 Active has pump and telemetry device Latisha Saunders MD [address], [place], [address], [place] - [facility] in [facility], 17:06:22 Lipoma 02394251 Active she had one removed previously , may have one above her left clavicle, or, it that may be a sentinel lymph node, she is to see PCP Latisha Saunders MD [address] [facility],[address], [place], [address], [facility] - [facility] in [facility], 11:03:30 Problem Notes None recorded. Procedures Surgical History Date Name Laterality Status Provider Name and Address Organization Details Recorded Time 07/16/1987 Other completed Jeny Hernandez [place] - [facility], 04/22/2015 14:52:00 07/16/1987 Other completed Jeny Hernandez [place] - [facility], 04/22/2015 14:52:00 Other completed Latisha Saunders MD [address] [facility],[address], [place], [address], [place] [facility], 04/22/2015 17:07:46 Imaging Results None recorded. Procedure [...] Address Organization Details Last Updated DateTime 04/22/2015 23192.65 0274 g 151.13 cm 27.8 kg/m2 64 /min 139/63 mm[Hg] Jeny Hernandez [place] - [facility], 04/22/2015 14:52:00 Social History Question Answer Notes LastModified by Organizat ion Details LastModified Time Tobacco Smoking Status Never Smoker Not Available [facility] 05/18/2020 03:19:40 What Is Your Level Of Caffeine Consumption? Moderate [id number] Information not available 05/18/2020 What Type Of Diet Are You Following? REGULAR [id number] Information not available 05/18/2020 Which Illicit Or Recreational Drugs Have You Used? No [id number] Information not available 05/18/2020 Do You Reside In Or Have You Traveled To An Area Where Ebola Virus Transmission Is Active? No [id number] Information not available 05/18/2020 Education 4 Year College [email or web address] Information not available 04/22/2015 Marital Status [email or web address] Informatio n not available 04/22/2015 Are You Sexually Active? Yes [id number] Information not available 05/18/2020 How Much Tobacco Do You Smoke? No [id number] Information not available 05/18/2020 General Stress Level Low [facility] Information not available 04/22/2015 Sex: Unknown Functional Status Question Answer Note LastModified by Organization D etails LastModified Time What is your level of alcohol consumption? 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 Heavy [id number] Information not available 05/18/2020 Mental Status None recorded. Family History Relationship Description Onset Age of this Age Resolved Age Notes LastModified by Organization Details LastModified Time Unspecified Relation Malignant neoplasm of breast 46 46 cousin [email or web address] Not available 2014 14:52:00 Father Heart disease [email or web address] Not available 02/2015 15:25:33 Medical History Condition Response Anesthesia complications N High Blood Pressure N Depression N Lung Disease N Defects or Inherited Disease N History of Ovarian Cancer N BRCA testing in past N Anxiety Disorder N Arthritis N Infertility N History of Cancer N Endometriosis N Thyroid Problems Y Kidney or Bladder Problems Y GI Problems N Anemia N History of Breast Cancer N Psychiatric Illness N Diabetes Y Headaches or Migraines N Asthma Y Hepatitis N Heart Disease N Hypertension N [...] completed Jeny riggins [place] - [facility], 04/22/2015 14:52:00 Past Encounters Encounter ID Performer Location Encounter Start Date Encounter Closed Date Diagnosis/Indication Diagnosis SNOMED-CT Code Diagnosis ICD10 Code Diagnosis IMO Codes Diagnosis Note [id number] MD LATISHA Ojeda MD [address] [place] [address] 04/22/2015 14:20:05 04/26/2015 16:19:41 Specialized medical examination 73978977 Z01.419 Screening for malignant neoplasm of rectum 245992432 Z12.12 Screening mammography 24 288092 Z12.31 Health Concerns Section Related Observation LastModified by Organization Detai ls LastModified Time None Recorded Concern Status LastModified by Organization Details LastModified Time None Recorded Advance Directives Directive None Recorded Payers Insurance Date Sequence Insurance Name Policy Number Policy [place] Covered Member ID [place] Member ID Guarantor Name 10/31/2016 1 [facility] (POS) [id number] Flor Retana [id number] Flor Retana Notes Date Note Type Note Provider Name and Address Organization Details Recorded Time 04/22/2015 text/html ROS as noted in the HPI Latisha Saunders MD [address], [place], [address], [place] [facility], 04/26/2015 11:03:48 OBGyn Episode No OBEpisode recorded.
--- OUTSIDE RECORDS SUMMARY | 2025-06-29 20:45 | XMS_ITS | Clinical Summary ---
Author Organization [facility] Address [address] [facility] [address] [place] [address] Phone Care Team Providers Care Instructional Specialist Name Role Phone Evelyn Bledsoe MD Unavailable [phone] Maile Barry PA-C Unavailable + Radha Pierson MD Primary Care Provider [phone] Allergies No known active allergies Medications NOVOLOG U-100 INSULIN ASPART 100 unit/mL injection vial USE 65 UNITS VIA PUMP SUBCUTANEOUSLY DIRECTED SUBCUTANEOUSLY DAILY 90 DAYS 023 Active fluticasone propion-salmetero L (ADVAIR DISKUS) 250-50 mcg/dose DISKUS Inhale 250 mcg/actuation of fluticasone into the lungs 2 (two) times a day. 023 Active albuterol sulfate (PROAIR HFA INHL) Inhale into the lungs. 023 Active insulin pen needles, disposable, 32 gauge x 5/32 NdleIndications:T ype 1 diabetes mellitus with other specified complication 1 each by Miscellaneous route 4 (four) times a day before meals and nightly. Prn insulin pump failure 100 each 2 023 Active ACCU-CHEK GUIDE L1-L2 CTRL JACQUES SolnIndications:T ype 1 diabetes mellitus with other specified complication 1 each by Miscellaneous route once as needed. 1 each 1 023 Active glucagon (GVOKE) 1 mg/0.2 mL subcutaneous syringeIndication s:Type 1 diabetes mellitus with other specified complication Inject 0.2 mL (1 mg total) under the skin once as needed (severe hypoglycemia). 0.4 mL 2 024 Active ACCU-CHEK GUIDE ME GLUCOSE MTR Misc meterIndications: Type 1 diabetes mellitus with other specified [...] INSULIN 100 unit/mL (3 mL) InPn injection penIndications:Ty pe 1 diabetes mellitus with other specified complication Inject 9 Units under the skin nightly at bedtime. PRN insulin pump failure 15 mL 1 024 Active valsartan (DIOVAN) 40 MG tablet Take 1 tablet by mouth 2 (two) times a day. 025 Active lancing device (ACCU-CHEK SOFTCLIX LANCET DEV [facility]) by Miscellaneous route. Active ACCU-CHEK SOFTCLIX LANCETS 1 each by Miscellaneous route 4 (four) times a day. 400 each 3 025 Active Additional Information Patient not taking.Reported on 04/14/2025 hydrALAZINE (APRESOLINE) 10 MG tablet Take 10 mg by mouth 3 (three) times a day. Active hydroCHLOROthiazi de 25 MG tablet Take 25 mg by mouth daily. Active Medication-Free Text 'Allergy Relief' OTC 1 tab QD Active Medication-Free Text Magnesium Citrate 120 mg QD Active zinc sulfate (ZINCATE) 50 mg zinc (220 mg) capsule Take 30 mg by mouth daily. Active Medication-Free Text NAC 900 mg QD Active gabapentin (NEURONTIN) 300 MG capsuleIndication s:Type 1 diabetes mellitus with other specified complication Take 1 capsule (300 mg total) by mouth nightly at bedtime. 90 capsule 1 025 Active SYNTHROID 112 mcg tabletIndications :Acquired hypothyroidism TAKE 1 TABLET BY MOUTH EVERY DAY 6 DAYS A WEEK AND TAKE 1/2 TABLET 1 DAY A WEEK 90 tablet 1 025 Active HUMALOG U-100 INSULIN 100 unit/mL injection vialIndications:T ype 1 diabetes mellitus with other specified complication ADMINISTER 65 UNITS UNDER THE SKIN DAILY THROUGH INSULIN PUMP. 70 mL 1 025 Active HUMALOG U-100 INSULIN 100 unit/mL injection vialIndications:T ype 1 diabetes mellitus with other specified complication ADMINISTER 65 UNITS UNDER THE SKIN DAILY THROUGH INSULIN PUMP 70 mL 1 025 2024 Discontinued Active Problems Problem Noted Date Diagnosed Date JIMENEZ (dyspnea on exertion) 01/14/[address] 08/24/2024 Assessment & Plan (04/23/2025 7:40 PM EDT): She is using the medtronic 780 insulin pump and Risk Management Solutionan 4 sensor Assessment & Plan (08/24/2024 9:12 [...] her glucose levels. Up to date with opho. Labs ordered Assessment & Plan (08/24/2024 9:12 [...] 780 G with new CGM, will contact [employer] [facility] to start process. Current pump settings. We [...] Type Department Care Team Description 05/31/2025 Refill [facility] [address] [place] [address] [place] [address] Maile Barry PA-C Medication Refill 05/28/2025 Refill [facility] [address] [place] [address] [place] [address] Rosa Garza [place] Medication Refill (Synthroid) 04/14/2025 8:20 AM EDT Office Visit [facility] [address] [place] [address] [place] [address] Maile Barry PA-C Type 1 diabetes mellitus [...] AM EST Office Visit [facility] [address] [place] [address] Maile Barry PA-C [address] [place] [address] [email or web address] 12/28/2025 9:20 AM EDT Office Visit [facility] [address] [place] [address] Evelyn Bledsoe MD [address] [place] [address] [email or web address] Health Maintenance Due Date Last Done Comments [...] resultswithin the time period is included. Blood Evelyn Bledsoe MD LAB BLOOD BKR ORDERABLES Final Result Performing Organization Address [facility]/ZIP Co de Phone Number [address] [address] * TSH with reflex (09/04/2024 3:58 PM EST) Blood Evelyn Bledsoe MD LAB BLOOD BKR ORDERABLES Final Result Performing Organization Address City/[facility]/ZIP Co de Phone Number [address] [address] * (ABNORMAL) Hemoglobin A1c (02/04/2024 9:01 AM EDT) HEMOGLOBIN A1C 6.6(H) 4.3 - 5.8 % [facility] Blood 02/04/2024 9:01 AM EDT 02/04/2024 9:06 AM EDT Evelyn Bledsoe MD LAB BLOOD BKR ORDERABLES Final Result Performing Organization Address [facility]/ZIP Co de Phone Number [address] [address] * (ABNORMAL) Lipid panel (02/05/2023 8:10 AM EDT) HDL 110 mg/dL [facility] Comment: Interpretation <40 mg/dL: Low HDL cholesterol (major risk factor for CHD) Greater than or equal to 60 mg/dL: High HDL cholesterol ( negative risk factor for CHD) HDL - cholesterol is affected by a number of factors, e.g. smoking, excerise, hormones, sex and age. CHOLESTEROL 279(H) 0 - 240 mg/dL [facility] TRIGLYCERIDES 60 30 - 160 mg/dL [facility] LDL 157(H) 50 - 129 mg/dL [facility] Comment: LDL levels in terms of risk for coronary heart disease: <100 mg/dL: Optimal 100-129 mg/dL: Near or above optimal 130-159 mg/dL: Borderline high 160-189 mg/dL: High >190 mg/dL: Very High CARDIAC RISK RATIO 2.5(L) 3.3 - 4.4 C [facility] Blood 02/05/2023 8:10 AM EDT 02/05/2023 8:13 AM EDT us Evelyn Bledsoe MD LAB BLOOD BKR ORDERABLES Final Result Performing Organization Address City/[facility]/ZIP Co de Phone Number [address] [address] from Last 3 Months or Most Recently Relevant to Health Maintenance [place] [address] [place] [address] [place] [address] MEDICARE REPLACEMENT [place] [id number] [facility] MEDICARE REPLACEMENT [place] [id number] [place] [facility] MEDICARE REPLACEMENT [place] [id number] [place] [facility] MEDICARE REPLACEMENT Care Teams Instructional Specialist Relationship Specialty Start Date End Date Radha Pierson MD [address] [place] [phone] PCP - General Internal Medicine 01/15/23 Evelyn Bledsoe MD [address] [place] [phone] Endocrinology 12/27/22 Maile Barry PA-C [address] [place] [address] Physician Needle Control [place] 12/27/22 Additional Source Comments The information contained in this document represents components of the legal health record. It is not the complete legal health record.[facility]
--- OUTSIDE RECORDS SUMMARY | 2025-06-29 20:45 | XMS_ITS | Encounter Summary ---
Author Organization [facility] Address [address] [place] [address] Care Team Providers Care Wall Insulation Sprayer Name Role Phone Radha Pierson MD Primary Care Provider [phone] Reason for Referral * Imaging (Routine) - Pending Review Specialty Diagnoses / Procedures Referred By Contac t Referred To Contact Radiology Diagnoses Hemangioma, unspecified site Procedures MR Abdomen wo and w Contrast Radha Pierson MD [address] [place] [address] Phone: tel: fax: [address] [address] Phone: tel: Referral ID Status Reason Start Date Expiration Date V isits Requested Visits Authorized [id number] Pending Review 05/26/2025 05/26/2026 1 1 Encounter Details Date Type Department Care Team (Late st Contact Info) Description 05/26/2025 Results Follow-Up Internal Medicine - [place] [address] [facility] [address] [place] [phone] Radha Pierson MD [address] [place] [phone] Social History Tobacco Use Types Packs/Day Years [...] care for your loved ones. For example, child care giver or elderly care for an older adult? [...] PM EDT documented as of this encounter Functional Status * Calculated C-SSRS Risk Score (Lifetime/Recent) Answer Date of Assessment Author No Risk Indicated 05/26/2025 9:37 AM Neema Ibrahim RN * [place] Suicide Severity Rating Scale (Screener/Recent Self-Report) Question Answer Date of Assessment Author 1. Wish to be (Past 1 Month) No 025 9:37 AM Neema Ibrahim RN 2. Non-Specific Active Suici mack Thoughts (Past 1 Month) No 05/26/2025 9:37 AM Neema Ibrahim RN 6. Suicidal Behavior (Lifetime) No 9:37 AM Neema Ibrahim RN documented as of this encounter Plan of Treatment Upcoming Encounters Date Type Department Care Team (Late st Contact Info) Description 10/08/2025 1:00 PM EDT Office Visit Internal Medicine - [address] [place] [phone] Radha Pierson MD [address] [place] [phone] documented as of this encounter Results * MR Abdomen wo [...] Signed Date: 06/29/2025 11:22 ET Workstation ID: [id number] Transcribed By: Self Edit Transcribed Date: 06/29/2025 [...] Signed Date: 06/29/2025 11:22 ET Workstation ID: [id number] Transcribed By: Self Edit Transcribed Date: 06/29/2025 11:14 ET Radha Pierson MD IMG MRI PROCEDURES Final Resul t documented in this encounter Visit Diagnoses Diagnosis Hemangioma, unspecified site- Primary Hemangioma, unspecified site documented in this encounter Additional Health Concerns Assessment Noted Time PHQ-9 Depression Total Score: 0 05/30/20 24 9:44 PM EST A fall risk assessment has been complete d for the patient 05/30/2024 9:38 PM EST documented as of this encounter Care Teams Wall Insulation Sprayer Relationship Specialty Start Date End Date Radha Pierson MD [address] [place] [phone] PCP - General Internal Medicine 12/20/21 documented as of this encounter
--- OUTSIDE RECORDS SUMMARY | 2025-06-29 20:45 | XMS_ITS | Clinical Summary ---
Author Organization [facility] Prior to 12/13/[address] [place] [address] Care Team Providers Care Auto Engine Mechanic Name Role Phone Radha Pierson MD Primary Care Provider [phone] Allergies No known active allergies Medications Medication [...] 1 tablet by mouth daily. 0 Active [place]-3 Fatty Acids (FISH OIL) 1000 MG CAPS [...] age to complete this topic Care Teams Auto Engine Mechanic Relationship Specialty Start Date End Date Radha Pierson MD [address] [place] [phone] PCP - General Internal Medicine 12/20/21
--- OUTSIDE RECORDS SUMMARY | 2025-06-29 20:46 | XMS_ITS | Clinical Summary ---
Author Organization [facility] Address [address] [place] [address] Phone Care Team Providers Care Residency Coordinator Name Role Phone Juno Pierson MD Primary Care Provider [phone] Allergies No known active allergies Medications INSULIN PUMP [facility] Insulin Infusion Pump (INSULIN PUMP [id number]) Kit by Does not apply route. From [facility]-- Dr.Eva Kwon 1 Active carboxymethylce llulos/glycerin (REFRESH OPTIVE OPHT) apply to the eye at bedtime as needed. Active ZINC ORAL Take by mouth daily. Active levothyroxine (SYNTHROID, LEVOTHROID) 112 mcg tablet Take 125 mcg by mouth daily. 6 days a week/ 75mcgt one day a week Active dilTIAZem (CARDIZEM) 30 mg immediate release tablet Take 1 tablet (30 mg total) by mouth 3 (three) times a day. Active enalapril (VASOTEC) 20 mg tablet Take 1 tablet (20 mg total) by mouth 2 (two) times a day. Active hydrALAZINE (APRESOLINE) 10 mg tablet Take 1 tablet (10 mg total) by mouth 3 (three) times a day. Active magnesium oxide (MAG-OX) 400 mg magnesium tablet Take 1 tablet (400 mg total) by mouth 1 (one) time each day. Active hydroCHLOROthia zide (HYDRODIURIL) 25 mg tablet TAKE 1 TABLET(25 MG) BY MOUTH 1 TIME EACH DAY 90 tablet 2 5 Active methocarbamoL (ROBAXIN) 500 mg tablet Take 1 tablet (500 mg total) by mouth 2 (two) times a day if needed for muscle spasms. 10 tablet 5 Active cefpodoxime (VANTIN) 200 mg tablet Take 1 tablet (200 mg total) by mouth 2 (two) times a day for 10 days. 20 each 5 06/04/20 25 lidocaine 4 % patch Apply 1 patch topically 1 (one) time each day. 30 each 5 06/24/20 25 celecoxib (CeleBREX) 100 mg capsule Take 1 capsule (100 mg total) by mouth 2 (two) times a day. 60 each 5 06/24/20 25 Active Problems Problem Noted Date Diagnosed Date Pulmonary hypertension 11/28/2024 Heart murmur 04/21/2024 Overview (04/21/2024): 06/14/2018 ECHO mild tricuspid regurg, ef 60-65%, grade I diastolic dysfunction. Abnormal ECG 09/28/2021 Overview (04/21/2024): Last Assessment & Plan: Patient's EKG shows poor R wave progression through the septal leads. Her last echocardiogram at [facility] in 2018 showed no regional wall motion normalities. We have no EKGs for comparison. She has multiple risk factors for coronary disease [place] strenuous [place] there are concerns over the possibility of a silent infarct. The patient will be scheduled for stress echocardiogram to assess for any evidence of an infarct and any evidence of residual ischemia if any. Hyperlipidemia 08/16/2021 Overview (04/21/2024): Last Assessment & Plan: Even though the patient has a significant elevated HDL cholesterol her LDL cholesterol is quite high and she has type 1 diabetes mellitus it would be recommended given her risk factor profile that she be started on low-dose statin therapy she has been given a prescription for atorvastatin 10 mg a day. I have asked her to check her lipids in 1 month Bilateral hip pain 03/15/2021 Pulmonary emphysema 10/13/2020 Acquired hypothyroidism 09/02/2020 Overview (04/21/2024): 112 mcg Essential hypertension 09/02/2020 Overview (04/21/2024): Last Assessment & Plan: Blood pressure still slightly elevated will double her Diovan creatinine is stable and she is improved after discontinuation of diuretic therapy Mild intermittent asthma without complication Other eosinophilia 09/02/2020 Type 1 diabetes mellitus 09/02/2020 Overview (04/21/2024): [id number]--6 Gets 4 untis AM and lunch. Dinner 6 units Basal is 0.4 units per kg. Encounters Date Type Department Care Team Description 06/29/2025 Results Follow-Up Internal Medicine [address] [address] Juno Pierson MD 06/23/2025 9:35 AM EST - 06/23/2025 11:59 PM [facility] Hospital Encounter [facility] MRI [address] [place] [address] Hemangioma, unspecified site Discharge Disposition: Home or Self Care 05/26/2025 9:47 AM EST - 05/26/2025 3:38 PM [facility] Emergency [facility] Emergency [address] [place] [address] Nhan Byrne MD Back pain, unspecified back location, unspecified back pain laterality, unspecified chronicity (Primary Dx) Discharge Disposition: Home or Self Care 05/26/2025 Results Follow-Up Internal Medicine [address] [address] Juno Pierson MD 05/25/2025 2:12 PM EST - 05/25/2025 9:38 PM [facility] Emergency [address] [place] [address] Acute hip pain, left (Primary Dx); Hepatic lesion; Acute urinary tract infection Discharge Disposition: Home or Self Care from Last 3 Months Immunizations Immunization Administration Dates Next Due Pfizer SARS-CoV-2 COVID-19, mRNA, LNP-S, preservative free 09/15/2020,08/25/2020 Zoster recombinant (Shingrix) 19yo and older 08/2020 Surgical History Surgery Date Site/Laterality Comments BLADDER SURGERY PROCEDURE: HISTORICAL BLADDER SURGERY; COMMENT: Bladder sling OTHER SURGICAL HISTORY PROCEDURE: ---- OTHER ----; COMMENT: urethral diverticulum correction x 2 FOOT SURGERY Bilateral PROCEDURE: HISTORICAL FOOT SURGERY; COMMENT: Bunions, bilaterally Medical History Medical History Date Comments Hypertension DX:Hypertension Type 1 diabetes mellitus ([facility] V24, [facility] V28) 09/02/2020 DX:Type 1 diabetes mellitus (HCC); COMMENT: Zran6j--4 Gets 4 untis AM and lunch. Dinner 6 units Basal is 0.4 units per kg. Other eosinophilia 09/02/2020 DX:Other eosi nophilia Mild intermittent asthma wit hout complication 09/02/2020 DX:Mild intermittent asthma without complication Heart murmur DX:Heart murmur; COMMENT: 06/14/2018 ECHO mild tricuspid regurg, ef 60-65%, grade I diastolic dysfunction. Essential hypertension 09/02/2020 DX:Essent ial hypertension Acquired hypothyroidism 09/02/2020 DX:Acqui red hypothyroidism; COMMENT: 112 mcg Pulmonary emphysema ([facility] V24, [facility] V28) 10/13/2020 DX:Pulmonary emphysema (HCC) Family History Medical History Relation Name Comments Breast cancer Cousin Other: CAD,stroke Father Multiple M I's Asthma Mother Colon cancer Neg Hx Relation Name Status Comments Cousin Father Mother Social History Tobacco Use Types Packs/Day Years Used Date Smoking Tobacco: Never Smokeless Tobacco: Never Tobacco Cessation:Counseling Given: Not Answered Alcohol Use Standard Drinks/Week Comments No 0 [...] for your loved ones. For example, child psychiatrist or elderly care for an older adult? [...] Orientation Straight 12/09/2024 12 :04 PM EDT Obstetrics History Para Term AB IAB SAB Ectopic Multiple Livin g Live Births 2 Last Filed Vital Signs Vital Sign Reading Time Taken Comments Blood Pressure 133/60 05/26/2025 3:31 PM EST Pulse 77 05/26/2025 3:31 PM EST Temperature 36.9 C (98.4 F) 05/26/2025 3:31 PM EST Respiratory Rate 16 05/26/2025 3:31 PM EST Oxygen Saturation 95% 05/26/2025 3:31 PM EST Inhaled Oxygen Concentration - - Weight 61.7 kg (136 lb) 05/26/2025 9:37 AM EST Height 152.4 cm (5') 05/26/2025 9:37 AM EST Body Mass Index 26.56 05/26/2025 9:37 AM EST Plan of Treatment Upcoming Encounters Date Type Department Care Team (Late st Contact Info) Description 10/08/2025 1:00 PM EDT Office Visit Internal Medicine - [place] [address] [facility] [address] [place] [address] Juno Pierson MD [address] [place] [phone] Health Maintenance Due Date Last Done Comments Colorectal Cancer Screening: Colonoscopy 1950 Diabetes: Annual Foot Exam 1960 Diabetes: Annual Retina Eye Exam 1960 Pneumococcal Vaccine: 50+ Years (1 of 2 - PCV) 1969 RSV Immunization Adult Patients (1 - Risk 50-74 years 1-dose series) 2000 Hepatitis C Screening 06/24/2022 Depression Screening 07/16/2024 05/30/2024 Diabetes: Blood Sugar Control Test (HGBA1C) 08/06/2024 02/04/2024 COVID-19 Vaccine ( season) 2025 05/28/2022, 04/10/2021, 09/15/2020, Additional history exists Influenza Vaccine (#1) 2025 , 07/01/2021, 04/10/2021, Additional history exists Social Influencers of Health Screening 05/29/2025 05/29/2024 Falls Risk Assessment 05/30/2025 05/30/2024 Medicare Annual Wellness Visit 05/30/2025 05/30/2024 Diabetes: Annual Urine Albumin-Creatinine Ratio (uACR) 09/04/2025 09/04/2024, 02/04/2024, 02/04/2024, Additional history exists Diabetes: Annual GFR (Glomerular Filtration Rate) 05/25/2026 05/25/2025, 09/04/2024, 02/04/2024, Additional history exists Hypertension/CHF/CAD Annual BMP Blood Test 05/25/2026 05/25/2025, 09/04/2024, 02/04/2024, Additional history exists Breast Cancer Screening 01/19/2027 01/20/20, 05/11/2023, 03/21/2019, Additional history exists Cholesterol Screening (Lipid Panel) 02/06/2028 02/05/2023, 02/05/2023 DTaP,Tdap,and Td Vaccines (2 - Td or Tdap) 09/02/2032 09/02/2022 Osteoporosis Screening (Bone Density Screening) 05/15/2033 05/15/2023 Zoster Vaccines Completed 10/15/2020, 04/24/2020 HIB Vaccines Aged Out No longer eligi ble based on patient's age to complete this topic HPV Vaccines Aged Out No longer eligi ble based on patient's age to complete this topic Hepatitis A Vaccines Aged Out No long er eligible based on patient's age to complete this topic Hepatitis B Vaccines Aged Out No long er eligible based on patient's age to complete this topic IPV Vaccines Aged Out No longer eligi ble based on patient's age to complete this topic MMR Vaccines Aged Out No longer eligi ble based on patient's age to complete this topic Meningococcal ACWY Vaccine Aged Out N o longer eligible based on patient's age to complete this topic Meningococcal B Vaccine Aged Out No l onger eligible based on patient's age to complete this topic RSV Immunization Patients Under 20 months Aged Out No longer eligible based on patient's age to complete this topic Varicella Vaccines Aged Out No longer eligible based on patient's age to complete this topic Procedures Procedure Name Priority Date/Time Associated Diagnosis Comments MR ABDOMEN WO AND W CONTRAST Routine 06/23/2025 10:54 AM EST Hemangioma, unspecified site CT CERVICAL SPINE WO CONTRAST STAT 05/26/2025 2:[address] ABDOMEN PELVIS W CONTRAST STAT 05/25/2025 6:40 PM EST URINALYSIS WITH REFLEX MICROSCOPIC STAT 05/25/2025 5:48 PM EST URINALYSIS WITH REFLEX MICROSCOPIC STAT 05/25/2025 5:48 PM EST CBC WITH AUTO DIFFERENTIAL STAT 05/25/2025 3:02 PM EST CBC AND DIFFERENTIAL STAT 05/25/2025 3:02 PM EST MAGNESIUM STAT 05/25/2025 3:02 PM EST COMPREHENSIVE METABOLIC PANEL STAT 05/25/2025 3:02 PM EST MG MAMMO DIGITAL SCREENING W CHRIS BILAT Routine 01/19/2025 2:31 PM EDT Breast cancer screening by mammogram HM URINE ALBUMIN CREATININE RATIO Routine 02/04/2024 HEMOGLOBIN A1C Routine 02/04/2024 MICKEY DEXA AXIAL SKELETON Routine 05/15/2023 3:26 PM EDT Asymptomatic menopausal state LIPID PANEL Routine 02/05/2023 from Last 3 Months or Most Recently Relevant to Health Maintenance Results * MR Abdomen wo and w [...] Signed Date: 06/29/2025 11:22 ET Workstation ID: [id number] Transcribed By: Self Edit Transcribed Date: 06/29/2025 [...] Signed Date: 06/29/2025 11:22 ET Workstation ID: [id number] Transcribed By: Self Edit Transcribed Date: 06/29/2025 11:14 ET Juno Pierson MD IM MRI PROCEDURES Final Resul t * CT Cervical Spine wo Contrast (05/26/2025 2:16 PM EST) Anatomical Region Laterality Modality Spine, C-spine Computed Tomogra phy 05/26/2025 2:36 PM EST Impressions 05/26/2025 2:37 PM EST No acute cervical spine fracture. -------- FINAL REPORT -------- Dictated By: Sherrill Summers Dictated Date: 05/26/2025 14:36 ET Assigned Physician: Sherrill Summers Reviewed and Electronically Signed By: Sherrill Summers Signed Date: 05/26/2025 14:37 ET Workstation ID: [id number] Transcribed By: Self Edit Transcribed Date: 05/26/2025 14:36 ET Narrative 05/26/2025 2:37 PM EST PROCEDURE: CT Cervical Spine INDICATION: neck pain TECHNIQUE: Noncontrast CT of the cervical spine with multiplanar reformats. The examination was performed utilizing dose reduction techniques. DLP: 709mGy/cm COMPARISON: No priors available. FINDINGS: No fracture. Multilevel degenerative changes are seen throughout the cervical spine with endplate irregularities, disc height loss, uncovertebral spurring and facet arthropathy present. Lung apices are clear. Soft tissues of the neck are unremarkable. Procedure Note Sherrill Summers MD - 05/26/2025 PROCEDURE: CT Cervical Spine INDICATION: neck pain TECHNIQUE: Noncontrast CT of the cervical spine with multiplanarreformats. The examination was performed utilizing dose reduction techniques. DLP:709mGy/cm COMPARISON: No priors available. FINDINGS: No fracture. Multilevel degenerative changes are seen throughout the cervical spinewith endplate irregularities, disc height loss, uncovertebral spurring andfacet arthropathy present. Lung apices are clear. Soft tissues of the neck are unremarkable. IMPRESSION: No acute cervical spine fracture. -------- FINAL REPORT -------- Dictated By: Sherrill Summers Dictated Date: 05/26/2025 14:36 ET Assigned Physician: Sherrill Summers Reviewed and Electronically Signed By: Sherrill Summers Signed Date: 05/26/2025 14:37 ET Workstation ID: [id number] Transcribed By: Self Edit Transcribed Date: 05/26/2025 14:36 ET Nhan Byrne MD IMG CT PROCEDURES Final Result * CT Abdomen Pelvis w Contrast (05/25/2025 6:40 PM EST) Anatomical Region Laterality Modality Body Computed Tomogra phy 05/25/2025 6:55 PM EST Impressions 05/25/2025 6:55 PM EST Impression: 1. No acute abnormalities or CT explanation for reported history of abdominal pain. 2. Incidental note is made of a likely hepatic hemangioma measuring up to 3.7 cm. If further evaluation is clinically warranted, further characterization with nonemergent MRI or hemangioma protocol CT could be performed. This document has been electronically signed by: Zheng Uriostegui MD on 05/25/2025 18:55:55 Narrative 05/25/2025 6:55 PM EST INDICATION: abdominal pain Exam: Contrast-enhanced CT abdomen and pelvis with multiplanar reformats. Comparison: None. Findings: CT abdomen: Lung bases are grossly clear. Liver reveals a segment 7 lesion measuring 2.2 x 3.7 cm transverse and AP dimension (3; 56 and 57) which reveals nodular peripheral enhancement, compatible with hemangioma. No other focal lesions or ductal dilatation. Gallbladder is unremarkable. Spleen appears unremarkable. Pancreas and adrenal glands appear unremarkable. Kidneys appear unremarkable. No free intraperitoneal fluid or retroperitoneal masses or adenopathy. Abdominal aorta is normal caliber with mild calcific athero sclerosis. Bowel loops reveal no abnormal wall thickening or distention. The appendix is unremarkable. No significant diverticular disease. CT pelvis: Uterus and adnexal structures appear unremarkable. Urinary bladder is free of gross filling defects. No pelvic masses, fluid or adenopathy. Osseous structures reveal no destructive osseous lesions. Procedure Note Zheng Uriostegui MD - 05/25/2025 INDICATION: abdominal pain Exam: Contrast-enhanced CT abdomen and pelvis with multiplanarreformats. Comparison: None. Findings: CT abdomen: Lung bases are grossly clear. Liver reveals a segment 7lesion measuring 2.2 x 3.7 cm transverse and AP dimension (3; 56 and 57) which reveals nodular peripheral enhancement, compatible with hemangioma. No other focal lesions or ductal dilatation. Gallbladder is unremarkable. Spleen appears unremarkable. Pancreas and adrenal glands appear unremarkable. Kidneys appear unremarkable. No free intraperitoneal fluid or retroperitoneal masses or adenopathy. Abdominal aorta is normal caliber with mild calcific athero sclerosis. Bowel loops reveal no abnormal wall thickening or distention. Theappendix is unremarkable. No significant diverticular disease. CT pelvis: Uterus and adnexal structures appear unremarkable. Urinary bladder is free of gross filling defects. No pelvic masses, fluid or adenopathy. Osseous structures reveal no destructive osseous lesions. IMPRESSION: Impression: 1. No acute abnormalities or CT explanation for reported history of abdominal pain. 2. Incidental note is made of a likely hepatic hemangioma measuring upto 3.7 cm. If further evaluation is clinically warranted, further characterization with nonemergent MRI or hemangioma protocol CT could be performed. This document has been electronically signed by: Zheng Uriostegui MD on 05/25/2025 18:55:[address] PROCEDURES Final Result * (ABNORMAL) Urinalysis with reflex microscopic (05/25/2025 5:48 PM EST) Specific [place] Urine 1.018 1.003 - 1.030 LAB URINALYSIS - AUTOMATED METHOD 05/25/2025 6:49 PM [facility] pH, Urine 7.0 5.0 - 8.0 pH LAB URINALYSIS - AUTOMATED METHOD 05/25/2025 6:49 PM [facility] Leukocytes, Urine Trace(A) Negative LAB URINALYSIS - AUTOMATED METHOD 05/25/2025 6:49 PM [facility] Nitrite, Urine Negative Negative LAB URINALYSIS - AUTOMATED METHOD 05/25/2025 6:49 PM [facility] Protein, Urine Trace <=Trace mg/dL LAB URINALYSIS - AUTOMATED METHOD 05/25/2025 6:49 PM [facility] Glucose, Urine 250(A) Negative mg/dL LAB URINALYSIS - AUTOMATED METHOD 05/25/2025 6:49 PM [facility] Ketones, Urine 15(A) Negative mg/dL LAB URINALYSIS - AUTOMATED METHOD 05/25/2025 6:49 PM [facility] Urobilinogen, Urine 1.0 0.2 - 1.0 mg/dL LAB URINALYSIS - AUTOMATED METHOD 05/25/2025 6:49 PM [facility] Bilirubin, Urine Negative Negative LAB URINALYSIS - AUTOMATED METHOD 05/25/2025 6:49 PM [facility] Blood, Urine Negative Negative LAB URINALYSIS - AUTOMATED METHOD 05/25/2025 6:49 PM [facility] RBC, Urine 0 0 - 4 /HPF 05/25/2025 6:49 PM [facility] WBC, Urine 50(H) 0 - 4 /HPF 05/25/2025 6:49 PM [facility] Squamous Epithelial, Urine 90(H) 0 - 60 /LPF 05/25/2025 6:49 PM [facility] Bacteria, Urine Negative Negative /HPF 05/25/2025 6:49 PM [facility] Hyaline Casts, Urine 20(H) 0 - 3 /LPF 05/25/2025 6:49 PM [facility] Urine Urine specimen obtained by clean catch procedure / Unknown Non-blood Collection / Unknown 05/25/2025 5:48 PM EST 05/25/2025 6:23 PM EST [facility] LAB URINE ORDERABLES Fin al Result [facility] [address] [place] [address], * (ABNORMAL) CBC auto differential (05/25/2025 3:02 PM EST) WBC 8.1 4.8 - 10.8 K/mcL LAB HEMETOLOGY METHOD 05/25/2025 3:20 PM [facility] RBC 4.20 3.80 - 4.80 M/[facility] LAB HEMETOLOGY METHOD 05/25/2025 3:20 PM [facility] Hemoglobin 12.9 11.5 - 16.0 g/dL LAB HEMETOLOGY METHOD 05/25/2025 3:20 PM [facility] Hematocrit 37.3 35.0 - 47.0 % LAB HEMETOLOGY METHOD 05/25/2025 3:20 PM [facility] MCV 89.7 79.0 - 98.0 FL LAB HEMETOLOGY METHOD 05/25/2025 3:20 PM [facility] MCH 31.0 27.0 - 32.0 pcg LAB HEMETOLOGY METHOD 05/25/2025 3:20 PM [facility] MCHC 34.6 32.0 - 37.0 g/dL LAB HEMETOLOGY METHOD 05/25/2025 3:20 PM [facility] RDW 12.3 11.0 - 15.0 % LAB HEMETOLOGY METHOD 05/25/2025 3:20 PM [facility] Platelets 389 130 - 400 K/mcL LAB HEMETOLOGY METHOD 05/25/2025 3:20 PM [facility] MPV 8.8 7.0 - 11.0 FL LAB HEMETOLOGY METHOD 05/25/2025 3:20 PM [facility] NRBC 0.0 <1.0 % LAB HEMETOLOGY METHOD 05/25/2025 3:20 PM [facility] NRBC Absolute 0.00 <0.10 K/mcL LAB HEMETOLOGY METHOD 05/25/2025 3:20 PM [facility] Neutrophils Relative 81.8 % LAB HEMETOLOGY METHOD 05/25/2025 3:20 PM [facility] Lymphocytes Relative 7.8 % LAB HEMETOLOGY METHOD 05/25/2025 3:20 PM [facility] Monocytes Relative 9.2 % LAB HEMETOLOGY METHOD 05/25/2025 3:20 PM [facility] Eosinophils Relative 0.4 % LAB HEMETOLOGY METHOD 05/25/2025 3:20 PM [facility] Basophils Relative 0.6 % LAB HEMETOLOGY METHOD 05/25/2025 3:20 PM [facility] Immature Granulocytes Relative 0.2 % LAB HEMETOLOGY METHOD 05/25/2025 3:20 PM [facility] Neutrophils Absolute 6.60 1.50 - 7.00 K/mcL LAB HEMETOLOGY METHOD 05/25/2025 3:20 PM [facility] Lymphocytes Absolute 0.63(L) 1.00 - 5.00 K/mcL LAB HEMETOLOGY METHOD 05/25/2025 3:20 PM [facility] Monocytes Absolute 0.74 0.20 - 1.00 K/mcL LAB HEMETOLOGY METHOD 05/25/2025 3:20 PM EST [facility] Eosinophils Absolute 0.03 0.00 - 0.50 K/[facility] LAB HEMETOLOGY METHOD 05/25/2025 3:20 PM EST [facility] Basophils Absolute 0.05 0.00 - 0.20 K/[facility] LAB HEMETOLOGY METHOD 05/25/2025 3:20 PM EST [facility] Immature Granulocytes Absolute 0.02 0.00 - 0.03 [facility] LAB HEMETOLOGY METHOD 05/25/2025 3:20 PM EST [facility] Blood Venous blood specimen / Unknown Venipuncture / Unknown 05/25/2025 3:02 PM EST 05/25/2025 3:12 PM EST [facility] LAB BLOOD ORDERABLES Fin al Result Performing Organization Address City/[facility]/ZIP Co de Phone Number [facility] [address] [place] [address], [place] [phone] * Magnesium (05/25/2025 3:02 PM EST) [facility] Magnesium 2.2 1.9 - 2.6 mg/dL LAB CHEMISTRY METHOD 05/25/2025 3:56 PM EST [facility] Comment:Results verified by repeat testing Blood Venous blood specimen / Unknown Venipuncture / Unknown 05/25/2025 3:02 PM EST 05/25/2025 3:12 PM EST [facility] LAB BLOOD ORDERABLES Fin al Result [facility] [address] [place] [address], [place] [phone] * (ABNORMAL) Comprehensive Metabolic Panel (CMP) (05/25/2025 3:02 PM EST) [facility] Sodium 131(L) 133 - 145 mmol/L LAB CHEMISTRY METHOD 05/25/2025 3:56 PM [facility] Potassium 3.9 3.5 - 5.5 mmol/L LAB CHEMISTRY METHOD 05/25/2025 3:56 PM [facility] Comment:Results verified by repeat testing Chloride 95(L) 96 - 110 mmol/L LAB CHEMISTRY METHOD 05/25/2025 3:56 PM [facility] CO2 28 21 - 32 mmol/L LAB CHEMISTRY METHOD 05/25/2025 3:56 PM [facility] Anion Gap 8 3 - 11 LAB CHEMISTRY METHOD 05/25/2025 3:56 PM [facility] Glucose 158(H) 70 - 100 mg/dL LAB CHEMISTRY METHOD 05/25/2025 3:56 PM [facility] BUN 13 5 - 25 mg/dL LAB CHEMISTRY METHOD 05/25/2025 3:56 PM [facility] Creatinine 1.03 0.50 - 1.10 mg/dL LAB CHEMISTRY METHOD 05/25/2025 3:56 PM [facility] eGFR 57(L) >=60 mL/min/1. 73m2 LAB CHEMISTRY METHOD 05/25/2025 3:56 PM [facility] Comment:Calculation based on the Chronic Kidney Disease Epidemiology Collaboration (CKD-EPI) equation refit without adjustment for race. BUN/Creatinine Ratio 12.6 LAB CHEMISTRY METHOD 05/25/2025 3:56 PM [facility] Calcium 9.5 8.5 - 10.5 mg/dL LAB CHEMISTRY METHOD 05/25/2025 3:56 PM [facility] AST (SGOT) 24 10 - 42 unit/L LAB CHEMISTRY METHOD 05/25/2025 3:56 PM [facility] Comment:Results verified by repeat testing ALT (SGPT) 30 10 - 60 unit/L LAB CHEMISTRY METHOD 05/25/2025 3:56 PM [facility] Alkaline Phosphatase 80 42 - 121 unit/L LAB CHEMISTRY METHOD 05/25/2025 3:56 PM EST [facility] Total Protein 7.1 6.0 - 8.0 g/dL LAB CHEMISTRY METHOD 05/25/2025 3:56 PM EST [facility] Albumin 3.7 3.2 - 5.0 g/dL LAB CHEMISTRY METHOD 05/25/2025 3:56 PM EST [facility] Total Bilirubin 0.5 0.0 - 1.4 mg/dL LAB CHEMISTRY METHOD 05/25/2025 3:56 PM EST [facility] Blood Venous blood specimen / Unknown Venipuncture / Unknown 05/25/2025 3:02 PM EST 05/25/2025 3:12 PM EST [facility] LAB BLOOD ORDERABLES [facility] al Result [facility] [facility] [address] [place] [address], [place] [phone] * MG Mammo Digital Screening w Chris bilat (01/19/2025 2:31 PM EDT) Anatomical Region Laterality Modality Breast Bilateral Mammography 01/20/2025 11:4 2 AM EDT Impressions 01/20/2025 11:52 AM EDT No mammographic evidence of malignancy. A negative mammogram in the presence of a clinically suspicious palpable abnormality does not preclude the possibility of malignancy or alter the indications for biopsy. PQRI CPT II 3342F Code 69574, 79711 PQRI 225 CPT II 7025F TISSUE DENSITY: There are scattered areas of fibroglandular density. (BI-RADS category B) IMPRESSION: Benign. BI-RADS CATEGORY: 2 - BENIGN RECOMMENDATION: Screening bilateral mammogram is recommended in 1 year. Mammo Location: [facility], [address] [place] [id number] -------- FINAL REPORT -------- Dictated By: Philip Muhammad Dictated Date: 01/20/2025 11:42 ET Assigned Physician: Philip Muhammad Reviewed and Electronically Signed By: Philip Muhammad Signed Date: 01/20/2025 11:52 ET Workstation ID: [id number] Transcribed By: Self Edit Transcribed Date: 01/20/2025 11:42 ET Narrative 01/20/2025 11:52 AM EDT CLINICAL: The patient is a 74 years Female presenting for routine screening mammography. The patient has undergone previous bilateral breast biopsies, pathology benign. The patient has a family history of breast cancer involving a paternal cousin, age not specified. COMPARISON: Most recently 05/11/2023 and most remotely 11/20/2017. TECHNIQUE: Full-field digital mammography of the breasts bilaterally consisting of tomosynthesis in MLO and CC projection is performed in the [employer] Advanced Batterye 2000-D unit. Computer aided detection utilizing the iCAD system was utilized. FINDINGS: The breasts are again seen to be composed of a combination of fatty and fibroglandular elements. Bilateral vascular calcifications, as well as a few scattered benign punctate calcifications, are unchanged. There is no suspicious cluster of microcalcifications, mass, or area of architectural distortion. There is no skin thickening or nipple retraction. Procedure Note Philip Muhammad MD - 01/20/2025 CLINICAL: The patient is a 74 years Female presenting for routinescreening mammography. The patient has undergone previous bilateralbreast biopsies, pathology benign. The patient has a family history ofbreast cancer involving a paternal cousin, age not specified. COMPARISON: Most recently 05/11/2023 and most remotely 11/20/2017. TECHNIQUE: Full-field digital mammography of the breasts bilaterallyconsisting of tomosynthesis in MLO and CC projection is performed in thePerkle 2000-D unit. Computer aided detection utilizing the iCADsystem was utilized. FINDINGS: The breasts are again seen to be composed of a combination offatty and fibroglandular elements. Bilateral vascular calcifications, aswell as a few scattered benign punctate calcifications, are unchanged.There is no suspicious cluster of microcalcifications, mass, or area ofarchitectural distortion. There is no skin thickening or nippleretraction. IMPRESSION: No mammographic evidence of malignancy. A negative mammogram in the presence of a clinically suspicious palpableabnormality does not preclude the possibility of malignancy or alter theindications for biopsy. PQRI CPT II 3342F Code 00534, 92936 PQRI 225 CPT II 7025F TISSUE DENSITY: There are scattered areas of fibroglandular density.(BI-RADS category B) IMPRESSION: Benign. BI-RADS CATEGORY: 2 - BENIGN RECOMMENDATION: Screening bilateral mammogram is recommended in 1 year. Mammo Location: [facility], [facility], [address] [place] [address] -------- FINAL REPORT -------- Dictated By: Philip Muhammad Dictated Date: 01/20/2025 11:42 ET Assigned Physician: Philip Muhammad Reviewed and Electronically Signed By: Philip Muhammad Signed Date: 01/20/2025 11:52 ET Workstation ID: [id number] Transcribed By: Self Edit Transcribed Date: 01/20/2025 11:42 ET Juno Pierson MD IMG BI PROCEDURES Final Result * HM Urine Albumin Creatinine Ratio (02/04/2024) Urine Albumin Creatinine Ratio Abstracted Historical Provider HEALTH MAINTENANCE Final Result * Hemoglobin A1c (02/04/2024) Hemoglobin A1C 0.0 % Comment:No Interpretation, A bstracted Blood Venous blood specimen / Unknown Historical Provider LAB BLOOD ORDERABLES Dinorah l Result * MICKEY DEXA AXIAL SKELETON (05/15/2023 3:26 PM EDT) Anatomical Region Laterality Modality Mammography 05/11/2023 7:32 AM EDT Narrative 05/15/2023 3:26 PM EDT [facility] Diagnostic Imaging Department [address] [place] [id number] Patient: FLOR RETANA /Age/Sex: 1950 72 - F Unit#: [id number] Location/Status: SPDIMAM/REG CLI Mnemonic/Ordering Site: MAMDEXAAX/SPMAM Ordering Physician: JUNO PIERSON MD Mickey Dexa Axial Skeleton - 05/11/23823 Report Status:Signed History: Low estrogen state due to menopause. Parent hip fracture. Personal history of fracture consists clavicle). Findings: Bone densitometry is performed utilizing dual energy x-ray absorptiometry (DXA) in the [employer] Artist unit. The lumbar spine and left proximal femur are evalu ated in the AP projection. The FRAX questionaire was completed. Note: The right proximal femur was not evaluated due to the presence of a glucose monitor on right thigh. The results indicate low bone mass (osteopenia), with a left femoral neck T- score of -0.6. The Z score is -0.6, indicating bone mineral density within the range of normal for age. The detailed DEXA report will be mailed to the referring physician's office. DualFemur FRAX: 10-year Probability of Fracture: Major Osteoporotic 35.3 percent Hip 16.6 percent. IMPRESSION: Osteopenia. [id number] Dictating Physician: MARITZA MCKINNEY MD Electronically Signed by: MARITZA MCKINNEY MD Dic Date/Time: 05/15/231523 Sign date/Time: 05/15/23 152 Procedure Note Maritza Mckinney MD - 08/21/2023 [facility] Diagnostic Imaging Department [address] [place], [place] [id number] Patient: FLOR RETANA /Age/Sex: 1950 - 72 - F Unit#: [id number] Location/Status: SPDIMAM/REG CLI Mnemonic/Ordering Site: MAMDEXAAX/SPMAM Ordering Physician: JUNO PIERSON MD Mickey Dexa Axial Skeleton - 05/11/23823 Report Status:Signed History: Low estrogen state due to menopause. Parent hip fracture.Personal history of fracture consists clavicle). Findings: Bone densitometry is performed utilizing dual energy x-ray absorptiometry(DXA) in the [employer]imo[employer] Artist unit. The lumbar spine and left proximal femur areevalu ated in the AP projection. The FRAX questionaire was completed. Note: The right proximal femur was not evaluated due to the presence ofa glucose monitor on right thigh. The results indicate low bone mass (osteopenia), with a left femoral neckT- score of -0.6. The Z score is -0.6, indicating bone mineral density withinthe range of normal for age. The detailed DEXA report will be mailed to the referring physician's office. DualFemur FRAX: 10-year Probability of Fracture: Major Osteoporotic 35.3 percent Hip 16.6 percent. IMPRESSION: Osteopenia. [id number] Dictating Physician: MARITZA MCKINNEY MD Electronically Signed by: MARITZA MCKINNEY MD Dic Date/Time: 05/15/231523 Sign date/Time: 05/15/231525 Juno Pierson MD IMG BI PROCEDURES Final Result * Lipid panel (02/05/2023) LDL/HDL Ratio 0 Comment:No Interpretation, A bstracted Triglycerides 0 mg/dL Comment:No Interpretation, A bstracted Cholesterol 0 mg/dL Comment:No Interpretation, A bstracted HDL 0 mg/dL Comment:No Interpretation, A bstracted LDL Cholesterol 0 mg/dL Comment:No Interpretation, A bstracted Blood Venous blood specimen / Unknown Historical Provider LAB BLOOD ORDERABLES Dinorah l Result from Last 3 Months or Most Recently Relevant to Health Maintenance Insurance [employer] MED[employer]ARE Care Teams Residency Coordinator Relationship Specialty Start Date End Date Juno Pierson MD [address] [phone] PCP - General Internal Medicine 12/20/21
--- OUTSIDE RECORDS SUMMARY | 2025-06-29 20:46 | XMS_ITS | Continuity of Care Document ---
Author Organization [facility] Address [address] [place] [address] Phone [phone] Social History Type Date Description Comments Sex Female Sex Unknown Medical Devices Description No Information Available Encounters Description No Information Available Assessments Description No Information Available Plan of Treatment No Information Available Functional Status Description No Information Available Mental Status Description No Information Available Referrals Description No Information Available
--- OUTSIDE RECORDS SUMMARY | 2025-06-29 20:46 | XMS_ITS | Encounter Summary ---
Author Organization [facility] [place] [address] Care Team Providers Care Brusher Tender Name Role Phone Radha Pierson MD Primary Care Provider [phone] Encounter Details Date Type Department Care Team ([facility] Contact Info) Description 06/29/2025 Results Follow-Up Internal Medicine - [address] [place] [phone] Radha Pierson MD [address] [place] [phone] Social History Tobacco Use Types Packs/Day Years [...] PM EDT documented as of this encounter Plan of Treatment Upcoming Encounters Date Type Department Care Team (Late st Contact Info) Description 10/08/2025 1:00 PM EDT Office Visit Internal Medicine - [address] [place] [address] Radha Pierson MD [address] [place] [phone] documented as of this encounter Visit Diagnoses Not on filedocumented in this encounter Additional Health Concerns Assessment Noted Time PHQ-9 Depression Total Score: 0 05/30/20 9:44 PM EST A fall risk assessment has been complete d for the patient 05/30/2024 9:38 PM EST documented as of this encounter Care Teams Brusher Tender Relationship Specialty Start Date End Date Radha Pierson MD [address] [phone] PCP - General Internal Medicine 12/20/21 documented as of this encounter
== END 2025-06-29 15:12 | disposition home or self-care (01) ==
LOC: HO.HPS 14:24
PROVIDERS: PCP Internal Medicine; Visit Provider Hospitalist
DX: R06.09 Other forms of dyspnea (principal); J45.40 Moderate persistent asthma, uncomplicated; J30.9 Allergic rhinitis, unspecified; R00.0 Tachycardia, unspecified; I51.89 Other ill-defined heart diseases; G47.33 Obstructive sleep apnea (adult) (pediatric)
CPT/HCPCS: 99214

== ENCOUNTER → 2025-06-29 14:23 | Outpatient (BNVA) | payer MEDICARE, SELFPAY | PROVIDERS: PCP Internal Medicine; Visit Provider Hospitalist | DX: J45.40 Moderate persistent asthma, uncomplicated (principal); R06.09 Other forms of dyspnea; G47.33 Obstructive sleep apnea (adult) (pediatric); I51.89 Other ill-defined heart diseases | CPT/HCPCS: 99212 ==